=== PATIENT | male | born 1950 | race Two or more races ===

== ENCOUNTER 2020-09-23 08:36 | Inpatient (IN) | payer MEDICAID ==
[~2020-09-23] VITALS: Ht 175.3 cm; Wt 99.8 kg
[2020-09-23 08:46] VITALS: BP 154/90
--- NOTE | 2020-09-23 08:46 | NUR ---
ED Nurse Note: Patient from [facility] and brought in by RA 68 due to oxygen desaturation of 90 % in room air. Per EMS, oxygen went up to 97 % on 4LPM. Patient is awake and moaning, unable to follow commands with non labored breathing. Noted occasional coughing. Sats 94 % in room air at this time.
--- NOTE | 2020-09-23 09:19 | Diagnostic Imaging Report ---
EXAM: XR Chest, 1 View CLINICAL HISTORY: DYSPNEA TECHNIQUE: Frontal view of the chest. COMPARISON: No relevant prior studies available. FINDINGS: Lungs: There are patchy bilateral lower lobe infiltrate suspicious for pneumonia. Pleural space: Unremarkable. No pneumothorax. Heart: Unremarkable. No cardiomegaly. Mediastinum: Unremarkable. Bones/joints: Unremarkable. IMPRESSION: There are patchy bilateral lower lobe infiltrate suspicious for pneumonia.
--- NOTE | 2020-09-23 09:39 | NUR ---
ED Nurse Note: Collected blood, urine, covid19 swab. MRSA/VRE and CRE swab then sent.
[2020-09-23 09:42] LABS: BASOPHILS % (AUTO) 0.3 % (0.0-2.0); EOSINOPHILS % (AUTO) 0.5 % (0.0-3.0); HEMATOCRIT 45.1 % (42.0-52.0); HEMOGLOBIN 15.9 G/DL (14.2-18.0); LYMPHOCYTES % (AUTO) 9.5 % (20.0-45.0); MEAN CORPUSCULAR VOLUME 83 FL (80-99); MONOCYTES % (AUTO) 8.7 % (1.0-10.0); PLATELET COUNT 196 K/UL (150-450); RED BLOOD COUNT 5.41 M/UL (4.70-6.10); RED CELL DISTRIBUTION WIDTH 14.5 % (11.6-14.8); WHITE BLOOD COUNT 8.9 K/UL (4.8-10.8)
--- NOTE | 2020-09-23 09:42 | Emergency Room Report ---
History of Present Illness General Chief Complaint: Dyspnea/Respdistress Source: Medical Record, EMS Present Illness HPI Patient sent in from nursing home facility. Apparently he was desaturating his oxygen there. He had a O2 sat of 90%. On 4 L went up to 97%. There is a history that he tested negative for Covid but unknown which date. The patient is unable to give a history as he is mumbling his words. He does complain about pain in his rectum but denies chest pain. He has been coughing also. 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 Prediabetic. Hypertension. COPD. Allergies: Coded Allergies: No Known Allergies (Unverified , 09/23/20) COVID-19 Screening Contact w/high risk pt: Yes Experienced COVID-19 symptoms?: Yes COVID-19 Testing performed [employer]: No Patient History Limited by: medical condition Past Medical History: see triage record, old chart reviewed - Records from nursing home facility Social History Narrative residential facility Reviewed Nursing Documentation: PMH: Agreed; PSxH: Agreed Nursing Documentation-PMH Hx Hypertension: Yes - HYPERLIPIDEMIA History Of Psychiatric Problem: Yes - MAJOR DEPRESSIVE DISORDER, SCHIZOPHRENIA, BIPOLAR Review of Systems All Other Systems: limited Physical Exam Vital Signs Date Time Temp Pulse Resp B/P (MAP) Pulse Ox O2 Delivery O2 Flow Rate FiO2 09/23/20 08:36 98.8 88 16 140/90 (107) 97 Nasal Cannula 2.0 Sp02 EP Interpretation: reviewed, normal General Appearance: no apparent distress, alert, Chronically Ill Head: normocephalic, atraumatic Eyes: bilateral eye normal inspection, bilateral eye PERRL, bilateral eye EOMI ENT: moist mucus membranes Neck: supple, no meningismus Respiratory: no respiratory distress, no retraction, crackles Cardiovascular #1: regular rate, rhythm Cardiovascular #2: 2+ radial (R) Gastrointestinal: normal inspection, non tender, no mass, decreased bowel sounds Genitourinary: penis normal Musculoskeletal: back normal, normal range of motion, no calf tenderness, other - Contractures of hands and feet Neurologic: alert, oriented - X1, Babinski - Bilateral, other - Grunting sounds incomprehensible Psychiatric: mood/affect normal Reflexes: 2+ knee (R), 2+ knee (L) Skin: no rash, warm/dry Medical Decision Making Diagnostic Impression: Primary Impression: Pneumonia Qualified Codes: J18.9 - Pneumonia, unspecified organism Additional Impressions: Hypoxia Schizophrenia Qualified Codes: F20.9 - Schizophrenia, unspecified ER Course Patient presents with hypoxia and cough. Differential includes pneumonia, COVID-19, bronchitis, exacerbation of COPD amongst others. Patient evaluated with EKG, chest x-ray and labs. Patient placed in isolation and Covid is being tested. Patient placed on a engine monitor. Covid test negative. EKG no injury. Chest x-ray bilateral infiltrates. CBC with normal white count. Left shift. CMP essentially normal with minimally elevated blood glucose. Urinalysis clear. Normal lactic acid, negative troponin. Minimally elevated D-dimer. Antibiotics begun for pneumonia from nursing home facility. Patient somewhat improved but still with low oxygen saturation on oxygen. Patient admitted to the medical floor. Laboratory Tests Test 09/23/20 09:15 White Blood Count 8.9 K/UL (4.8-10.8) Red Blood Count 5.41 M/UL (4.70-6.10) Hemoglobin 15.9 G/DL (14.2-18.0) Hematocrit 45.1 % (42.0-52.0) Mean Corpuscular Volume 83 FL (80-99) Mean Corpuscular Hemoglobin 29.4 PG (27.0-31.0) Mean Corpuscular Hemoglobin Concent 35.2 G/DL (32.0-36.0) Red Cell Distribution Width 14.5 % (11.6-14.8) Platelet Count 196 K/UL (150-450) Mean Platelet Volume 6.2 FL (6.5-10.1) L Neutrophils (%) (Auto) 81.0 % (45.0-75.0) H Lymphocytes (%) (Auto) 9.5 % (20.0-45.0) L Monocytes (%) (Auto) 8.7 % (1.0-10.0) Eosinophils (%) (Auto) 0.5 % (0.0-3.0) Basophils (%) (Auto) 0.3 % (0.0-2.0) Prothrombin Time 11.6 SEC (9.30-11.50) H Prothrombin Time INR 1.1 (0.9-1.1) Activated Partial Thromboplast Time 28 SEC (23-33) D-Dimer 0.91 mg/L FEU (0.00-0.49) H Urine Color Yellow Urine Appearance Slightly cloudy Urine pH 5 (4.5-8.0) Urine Specific [place] 1.020 (1.005-1.035) Urine Protein 1+ (NEGATIVE) H Urine Glucose (UA) Negative (NEGATIVE) Urine Ketones Negative (NEGATIVE) Urine Blood 1+ (NEGATIVE) H Urine Nitrite Negative (NEGATIVE) Urine Bilirubin Negative (NEGATIVE) Urine Urobilinogen 4 MG/DL (0.0-1.0) H Urine Leukocyte Esterase 1+ (NEGATIVE) H Urine RBC 0-2 /HPF (0 - 0) H Urine WBC 2-4 /HPF (0 - 0) Urine Squamous Epithelial Cells Occasional /LPF Urine Bacteria Moderate /HPF (NONE) H Sodium Level 142 MMOL/L (136-145) Potassium Level 4.0 MMOL/L (3.5-5.1) Chloride Level 107 MMOL/L (98-107) Carbon Dioxide Level 27 MMOL/L (21-32) Anion Gap 8 mmol/L (5-15) Blood Urea Nitrogen 20 mg/dL (7-18) H Creatinine 1.0 MG/DL (0.55-1.30) Estimated Glomerular Filtration Rate > 60 mL/min (>60) Glucose Level 118 MG/DL (74-106) H Lactic Acid Level 1.40 mmol/L (0.4-2.0) Calcium Level 9.1 MG/DL (8.5-10.1) Magnesium Level 2.2 MG/DL (1.8-2.4) Ferritin 169 NG/ML (8-388) Total Bilirubin 0.6 MG/DL (0.2-1.0) Aspartate Amino Transferase (AST) 16 U/L (15-37) Alanine Aminotransferase (ALT) 12 U/L (12-78) Alkaline Phosphatase 90 U/L (46-116) Lactate Dehydrogenase 193 U/L (81-234) Total Creatine Kinase 83 U/L (26-308) Troponin I 0.020 ng/mL (0.000-0.056) C-Reactive Protein, Quantitative 3.8 mg/dL (0.00-0.90) H Pro-B-Type Natriuretic Peptide 178 pg/mL (0-125) H Total Protein 7.3 G/DL (6.4-8.2) Albumin 3.4 G/DL (3.4-5.0) Globulin 3.9 g/dL Albumin/Globulin Ratio 0.9 (1.0-2.7) L Lipase 113 U/L (73-393) Microbiology Date/Time Source Procedure Growth Status 09/23/20 09:10 Nasopharynx SARS-CoV-2 RdRp Gene Assay - Final Complete EKG Diagnostic Results Rate: normal Rhythm: NSR ST Segments: no acute changes - Specific ST-T wave changes Rhythm Strip Diag. Results EP Interpretation: yes Rhythm: NSR, no PVC's, no ectopy Chest X-Ray Diagnostic Results Chest X-Ray Diagnostic Results : Chest X-Ray Ordered: Yes # of Views/Limited/Complete: 1 View Indication: Other EP Interpretation: Yes Interpretation: no effusion, no pneumothorax, other - Lower lobe consolidation Impression: Other Electronically Signed by: Electronically signed by Jarad Mccauley MD Last Vital Signs Date Time Temp Pulse Resp B/P (MAP) Pulse Ox O2 Delivery O2 Flow Rate FiO2 09/23/20 20:14 Nasal Cannula 2.0 09/23/20 19:54 98.3 86 18 158/90 (112) 95 Status: improved Disposition: ADMITTED INPATIENT Condition: Serious Referrals: NON PHYSICIAN (PCP) Jarad Mccauley MD Sep 23, 2020 09:42
[2020-09-23] MEDS ORDERED: Azithromycin 500 MG in NS 275 ML IV ONE (09:45)
[2020-09-23] MEDS ORDERED: cefTRIAXone 1 GM in NS 55 ML IVPB ONE (09:45)
[2020-09-23 09:57] LABS: INR 1.1 (0.9-1.1)
[2020-09-23 10:10] LABS: ANION GAP 8 mmol/L (5-15); BLOOD UREA NITROGEN 20 mg/dL (7-18); CALCIUM 9.1 MG/DL (8.5-10.1); CARBON DIOXIDE 27 MMOL/L (21-32); CHLORIDE 107 MMOL/L (98-107); SODIUM 142 MMOL/L (136-145)
[2020-09-23] MEDS ORDERED: ATORVASTATIN CA20 MG ORAL (10:14)
[2020-09-23] MEDS ORDERED: RISPERDAL1 MG PO (10:14)
[2020-09-23] MEDS ORDERED: ASPIRIN EC81 MG ORAL (10:14)
[2020-09-23] MEDS ORDERED: HALDOL DEC100 MG/1 M IM (10:14)
[2020-09-23] MEDS ORDERED: LISINOPRIL10 MG ORAL (10:14)
[2020-09-23] MEDS ORDERED: BENZTROPINE MESY1 MG ORAL (10:14)
[2020-09-23 10:27] LABS: ALANINE AMINOTRANSFERASE 12 U/L (12-78); ALBUMIN 3.4 G/DL (3.4-5.0); ALBUMIN/GLOBULIN RATIO 0.9 (1.0-2.7); ALKALINE PHOSPHATASE 90 U/L (46-116); ASPARTATE AMINO TRANSFERASE 16 U/L (15-37); BILIRUBIN,TOTAL 0.6 MG/DL (0.2-1.0); CREATINE KINASE 83 U/L (26-308); FERRITIN 169 NG/ML (8-388); LACTATE DEHYDROGENASE 193 U/L (81-234)
[2020-09-23 10:40] VITALS: BP 159/95
[2020-09-23 10:45] LABS: APPEARANCE,URINE SLIGHTLY CLOUDY; BILIRUBIN, URINE NEGATIVE (NEGATIVE); GLUCOSE, URINE (UA) NEGATIVE (NEGATIVE); KETONES,URINE NEGATIVE (NEGATIVE); LEUKOCYTE ESTERASE ,URINE 1+ (NEGATIVE); NITRITE,URINE NEGATIVE (NEGATIVE); PH,URINE 5 (4.5-8.0); PROTEIN,URINE 1+ (NEGATIVE); UROBILINOGEN,URINE 4 MG/DL (0.0-1.0)
[2020-09-23 10:47] LABS: COLOR,URINE YELLOW
--- NOTE | 2020-09-23 12:01 | NUR ---
ED Nurse Note: Report given to Elaina BUSTILLO of Med Surg unit.
--- NOTE | 2020-09-23 12:41 | NUR ---
NURSE NOTES: Patient received from ER at 1225, report given by IWONA Kovacs. Pt is awake, alert and oriented x 1, unable to verbalize needs, not in any form of distress, no SOB, no s/sx of pain observed, bed set in lowest position with breaks engaged and alarm on, side rails up x 2 for safety, IV line present on right hand 20 g, skin assessment done, on room air, VS WNL, no belongings noted. Pt will be under care of Dr. Johnathon MD made aware of patient's arrival on the unit. Will continue to monitor and proceed with plan of care. Call light within reach. Addendum: 09/23/20 at 1641 by Elaina Wright RN Patient has no pressure ulcer present per endorsement and actual assessment, skin check performed with charge nurse, only hyperpigmentation noted on sacral area. Optifoam placed on sacral and heels for protection.
[2020-09-23 16:00] VITALS: BP 169/98
[2020-09-23] MEDS: Depakote 125mg Sprinkles ORAL SCH (17:03)
--- NOTE | 2020-09-23 19:21 | NUR ---
NURSE HAND-OFF: Important Events on Shift:[monitoring BP, new admission, turning and repositioning, monitor 02] Patient Status: [stable] Diet: [pureed moist] Pending Orders: [] Pending Results/Labs:[] Pending MD notification:[] Latest Vital Signs: Temperature 98.3 , Pulse 92 , B/P 169 /98 , Respiratory Rate 19 , O2 SAT 100 , Room Air, O2 Flow Rate 2.0 . Vital Sign Comment: [] Latest Levine Fall Score: 50 Fall Risk: High Risk Safety Measures: Call light , Bed Alarm , Side Rails Side Rails x2, Bed position Low and Locked. Fall Precautions: Report given to [IWONA Chavira].
[2020-09-23 19:54] VITALS: BP 158/90
[2020-09-23] MEDS: Benztropine 1mg tab ORAL SCH (21:00)
[2020-09-23] MEDS: Atorvastatin 20mg tab ORAL SCH (21:00)
--- NOTE | 2020-09-23 21:15 | History and Physical Report ---
DATE OF ADMISSION: 09/23/2020 HISTORY OF PRESENT ILLNESS: This is a 69 years old male, came to the emergency room for generalized weakness, hypoxia, pneumonia. The patient's COVID test is negative. PAST MEDICAL HISTORY: Significant for hypertension, hyperlipidemia, depression. MEDICATIONS: He is taking lisinopril, Risperdal, benztropine, Lipitor, aspirin. ALLERGIES: NKA. FAMILY HISTORY: Noncontributory. SOCIAL HISTORY: Lives at home. PHYSICAL EXAMINATION: GENERAL: This is an elderly male, currently in bed requiring oxygen. VITAL SIGNS: Blood pressure is 169/98, pulse 92, respirations 19, temperature 98.3. HEENT: Eyes are open. NECK: Supple. CHEST: Bilateral few crackles. CARDIOVASCULAR: Regular rhythm. No gallop. No murmur. ABDOMEN: Soft. Positive bowel sounds. Nontender. EXTREMITIES: CCE. NEUROLOGICAL: The patient has generalized weakness. GENITOURINARY: Deferred. LABORATORY AND DIAGNOSTIC DATA: White counts are 8.9, hemoglobin is 16. Chemistry panel, BUN 20, creatinine 1. C-reactive protein is 3.8. Troponins are negative. Chest x-ray showing there are patchy bilateral lower lobe pneumonia. ASSESSMENT: 1. Pneumonia. 2. Depression. 3. Hyperlipidemia. PLAN: We will continue current treatment. Continue antibiotic, bronchodilator treatments. Consider Pulmonary consult. Stanford Diego M.D. DR: HOSEA JOB#: [id number] CC:
[2020-09-24 00:03] VITALS: BP 155/100
[2020-09-24 03:57] VITALS: BP 150/98
--- NOTE | 2020-09-24 07:21 | NUR ---
HAND-OFF: Report given to Rylan Pathak RN.
--- NOTE | 2020-09-24 07:33 | NUR ---
NURSE NOTES: Received report from IWONA Burroughs. Patient seen in bed AAOx3, sometimes verbal, on bed rest. Patient on room air, breathing is even and unlabored with no SOB noted at this time. IV site patent and intact. Noted to have condom cath, draining yellow urine well. Bed is locked and placed in lowest position with bed alarm on .Call light within reach. Will continue to monitor Addendum: 09/24/20 at 1252 by Rylan Pathak RN AAOX1
[2020-09-24 08:00] VITALS: BP 158/107
[2020-09-24] MEDS: Azithromycin 500 MG in D5W 275 ML IV SCH (08:39)
[2020-09-24] MEDS: Aspirin Baby 81mg ORAL SCH (08:39)
[2020-09-24] MEDS: Depakote 125mg Sprinkles ORAL SCH ×2 (08:39→17:09)
[2020-09-24] MEDS: Lisinopril 10mg tab ORAL SCH (08:40)
[2020-09-24] MEDS: Enoxaparin 40mg Inj SUBQ SCH (08:41)
[2020-09-24] MEDS ORDERED: dexAMETHasone 10mg/ml Inj IV SCH (09:00)
[2020-09-24] MEDS: cefTRIAXone 1 GM in D5W 55 ML IVPB SCH (10:21)
[2020-09-24 12:00] VITALS: BP 146/90
--- NOTE | 2020-09-24 12:09 | General Progress Note ---
Subjective Constitutional: Reports: weakness Respiratory: Reports: cough, shortness of breath Gastrointestinal/Abdominal: Reports: no symptoms Neurologic/Psychiatric: Reports: weakness Allergies: Coded Allergies: No Known Allergies (Unverified , 09/23/20) Objective Last 24 Hour Vital Signs Date Time Temp Pulse Resp B/P (MAP) Pulse Ox O2 Delivery O2 Flow Rate FiO2 09/24/20 09:00 Nasal Cannula 2.0 09/24/20 08:40 158/107 09/24/20 08:00 97.7 73 20 158/107 (124) 96 09/24/20 03:57 98.1 79 18 150/98 (115) 96 09/24/20 00:03 98.4 77 20 155/100 (118) 96 09/23/20 20:14 Nasal Cannula 2.0 09/23/20 19:54 98.3 86 18 158/90 (112) 95 09/23/20 16:12 169/98 09/23/20 16:00 98.3 92 19 169/98 (121) 100 09/23/20 12:47 Nasal Cannula 2.0 09/23/20 12:14 98.0 98 15 162/90 100 Room Air Intake and Output 09/23/20 09/24/20 19:00 07:00 Intake Total 1330 ml Output Total 200 ml 250 ml Balance 1130 ml -250 ml Intake IV Total 1330 ml Output Urine Total 200 ml 250 ml # Voids 1 1 Height (Feet): 5 Height (Inches): 9.00 Weight (Pounds): 220 General Appearance: moderate distress EENT: PERRL/EOMI Neck: supple Cardiovascular: tachycardia Respiratory/Chest: crackles/rales, rhonchi - bilaterally Abdomen: non tender, soft Extremities: non-tender Assessment/Plan Assessment/Plan: covid pna iv abx iv decadrone fio2 id and pulmo on the case Vinnie Diego MD Sep 24, 2020 12:09
--- NOTE | 2020-09-24 15:40 | NUR ---
NURSE NOTES: Patient unable to expectorate sputum. Will continue to try
[2020-09-24 16:00] VITALS: BP 156/102
--- NOTE | 2020-09-24 16:18 | NUR ---
CASE MANAGEMENT:INITIAL REVIEW 69 YR OLD MALE BIBA FROM [facility] CC;DYSPNEA. RESPIRATORY DISTRESS SI;HYPOXIA. PNEUMONIA. 98.8 105 18 181/118 97% 2L NC BUN 20 CRP 3.8 PT 11.6 D-DIMER 0.91 UA+ PROTEIN, BLOOD, UROBILINOGEN, LEUKOCYTE ESTERASE, RBC, BACTERIA COVID RAPID ~ NEGATIVE CXR ~ There are patchy bilateral lower lobe infiltrate suspicious for pneumonia. IS;IVF NS BOLUS ROCEPHIN IV ZITHROMAX IV HYDRALAZINE IV ADMITTED TO MED SURG MED SURG STATUS DCP;FROM [facility]
--- NOTE | 2020-09-24 17:00 | Consultation ---
DATE OF CONSULTATION: 09/24/2020 INFECTIOUS DISEASES CONSULTATION CONSULTING PHYSICIAN: Venkata Coppola MD REFERRING PHYSICIAN: Vinnie Diego MD REASON FOR CONSULTATION: Pneumonia. HISTORY OF PRESENTING ILLNESS: This is a 69-year-old gentleman with history of hypertension, hyperlipidemia, depression who comes in with weakness. He was found to have pneumonia. His COVID-19 test is negative. An Infectious Diseases consultation has been obtained for antibiotics. PAST MEDICAL HISTORY: 1. History of hypertension. 2. Hyperlipidemia. 3. Depression. SOCIAL HISTORY: Unknown. FAMILY HISTORY: Unknown. REVIEW OF SYSTEMS: Unable to obtain currently. MEDICATIONS: As an inpatient, he is on ceftriaxone, lisinopril, aspirin, dexamethasone, azithromycin, Lovenox, Cogentin, Lipitor, clonidine, Depakote, albuterol ipratropium, Tylenol. ALLERGIES: No known drug allergies. PHYSICAL EXAMINATION: VITAL SIGNS: Temperature of 97.7, T-max of 98.8, pulse of 73, respiratory rate 20, blood pressure 158/107, O2 saturation of 96% on 2 liters of oxygen. HEENT: Pupils equally reactive to light and accommodation. Mouth appears clean without thrush. NECK: Supple. No adenopathy. No JVD. CARDIOVASCULAR: Regular rate and rhythm. No murmurs. LUNGS: Clear to auscultation bilaterally. No crackles. No wheezes. ABDOMEN: Soft, nontender. No organomegaly. EXTREMITIES: No cyanosis, no clubbing, no edema. LABORATORY DATA: Sodium 142, potassium 4, chloride 107, bicarb 27, BUN 20, creatinine 1, glucose 118. Calcium 9.1. Ferritin 169. Total bilirubin 0.6, AST 16, ALT 12, alkaline phosphatase 90. LDH 193. CK of 83. Troponin 0.02. C-reactive protein 3.8. Beta-natriuretic peptide 178. Total protein 7.3. Albumin 3.4. Lipase of 113. UA showing 2 to 4 white cells. COVID-19 test is negative. Chest x-ray is showing patchy bilateral lower lobe infiltrate, suspicious for pneumonia. ASSESSMENT: This is a 69-year-old gentleman with history of hypertension, depression, hyperlipidemia who comes in with weakness and is found to have. 1. Pneumonia. His COVID-19 test is negative. 2. Hypertension. 3. Hyperlipidemia. 4. Depression. PLAN: 1. Continue ceftriaxone and azithromycin. 2. Discontinue dexamethasone. 3. We will order a sputum for Gram stain and culture. 4. We will follow up cultures. I would like to thank Dr. Diego for this consultation. Maikeluntsyl Coppola M.D. DR: DANIEL JOB#: [id number] CC: Stanford Diego M.D.; Fax#: [phone]
[2020-09-24] MEDS ORDERED: Varibar Honey 250ml MC PRN (18:00)
[2020-09-24] MEDS ORDERED: Varibar Nectar 240ml MC PRN (18:00)
[2020-09-24] MEDS ORDERED: Varibar Pudding 230ml MC PRN (18:00)
[2020-09-24] MEDS ORDERED: Varibar Thin Liquid powder 148gm MC PRN (18:00)
--- NOTE | 2020-09-24 19:07 | NUR ---
NURSE HAND-OFF: Important Events on Shift: Sputum collection Patient Status: stable Diet: no added salt Pending Orders: n/a Pending Results/Labs: sputum culture Pending MD notification:n/a Latest Vital Signs: Temperature 97.4 , Pulse 88 , B/P 156 /102 , Respiratory Rate 20 , O2 SAT 98 , Nasal Cannula, O2 Flow Rate 2.0 . Vital Sign Comment: stable Latest Levine Fall Score: 50 Fall Risk: High Risk Safety Measures: Call light Within Reach, Bed Alarm Zone 2, Side Rails Side Rails x2, Bed position Low and Locked. Fall Precautions: Yellow Socks Report given to IWONA Burroughs.
[2020-09-24] MEDS: Albuterol/Ipratropium 3ml neb HHN PRN (19:57)
--- NOTE | 2020-09-24 20:04 | NUR ---
NURSE NOTES: Received patient awake, non-verbal, on O2 at 2L/min, having unproductive cough, RT giving him breathing treatment.
[2020-09-24 20:37] VITALS: BP 146/88
[2020-09-24] MEDS: Atorvastatin 20mg tab ORAL SCH (20:41)
[2020-09-24] MEDS: Benztropine 1mg tab ORAL SCH (20:41)
--- NOTE | 2020-09-24 23:06 | Psychiatry Consultation ---
Psychiatry Consultation Psychiatry Consultation Chief Complaint: Dyspnea/Respdistress History of Present Illness: 69-year-old male with a history of depression, who is admitted to the hospital for COVID-19. The patient presents with anxiety, hopelessness, helplessness, and decreased energy. PAST PSYCHIATRIC HISTORY: Depression and anxiety. PAST MEDICAL HISTORY: Significant for COVID-19, hypertension, hyperlipidemia. ALLERGIES: No known drug allergies. SUBSTANCE ABUSE HISTORY: No known history of illicit drug use or alcohol. MENTAL STATUS EXAMINATION: The patient is alert, oriented times self, place, situation. Mood is depressed. Affect is blunted, congruent with mood. Thought process is concrete. Thought content, no suicidal or homicidal ideation. Cognition is intact. Insight and judgment is fair. ASSESSMENT: Middle Bass I Major depressive disorder. Middle Bass II Deferred. Middle Bass III As above. Middle Bass IV Low. Middle Bass V 50 PLAN: 1. We will start the patient on Lexapro. 2. Provide the patient with reality orientation and supportive therapy. Allergies: Coded Allergies: No Known Allergies (Unverified , 09/23/20) Medication History Scheduled Aspirin Ec* (Aspirin Ec*), 81 MG ORAL DAILY, (Reported) Atorvastatin Calcium* (Atorvastatin Calcium*), 20 MG ORAL BEDTIME, (Reported) Benztropine Mesylate* (Benztropine Mesylate*), 1 MG ORAL DAILY AT BEDTIME, (Reported) Haloperidol Decanoate (Haloperidol Decanoate), 1 ML IM OF THE MONTH, (Reported) Lisinopril* (Lisinopril*), 10 MG ORAL DAILY, (Reported) Risperidone* (Risperdal*), 1 MG PO DAILY, (Reported) Discontinued Medications Haloperidol Decanoate (Haldol Decanoate 100), 100 MG IM, (Reported) Discontinued Reason: Therapy completed Objective Data Height (Feet): 5 Height (Inches): 9.00 Weight (Pounds): 220 Blaze Kendrick MD Sep 24, 2020 23:06
[2020-09-25 00:24] VITALS: BP 129/79
[2020-09-25 04:00] VITALS: BP 120/74
--- NOTE | 2020-09-25 07:00 | NUR ---
HAND-OFF: Report given to Rylan Pathak RN.
--- NOTE | 2020-09-25 07:03 | NUR ---
NURSE NOTES: Received report from IWONA Burroughs. Patient seen in bed AAOx1, sometimes verbal, on bed rest. Patient on room air, breathing is even and unlabored with no SOB noted at this time. IV site patent and intact. Noted to have condom cath, draining urine well. Bed is locked and placed in lowest position with bed alarm on .Call light within reach. Will continue to monitor
[2020-09-25 08:00] VITALS: BP 137/80
--- NOTE | 2020-09-25 08:12 | NUR ---
Speech Pathology Note (Bedside Dysphagia Evaluation) Brief Note: Mr. Roe is a 69 year old male BIBA via 911 from [facility] due to hypoxemia with possible aspiration on 09/23/2020. His PO diet at care home is pureed and nectar thick liquid. On his arrival vital signs were temp (98.8), pulse (88 S.T), BP 140/90, RR 16, SPO2 97% on 2 liter. The labs were grossly unremarkable. CXR was concerning for bilateral lower lobe infiltrate c.w possible aspiration pneumonia. ID consult, and antibiotic regimen was selected. The sputum culture is currently pending. Last 24 hours vital signs are stable with peak temperature 97.1, and lowest O2 saturation is 93% on 2 liter. His underlying medical issues are hypertension, hyperlipidemia, cataract, paranoid schizophrenia, and atherosclerotic. Findings: Mr. Roe is alert and oriented x 1. His speech is severely dysarthric in flaccid in nature. His initial voice is very wet concerning secretion in larynx to begin with. During spontaneous speech, he intermittently coughed with congestion concerning for secretion in lungs as well. His cough is effective to mobilize his own secretion. He received breakfast tray consists with pureed pancake, egg, cream of wheat and thick juice. When I asked him if he is interested in eating he said yes. I carefully fed him. However, he intermittently aspirates PO diet, more so thick liquid rather pureed. I was not sure exactly how and what he aspirated. One of the cause of dysphagia is definitely due to oropharyngeal dysmotility based on his slurred speech. I am not sure if there are any other issues causing dysphagia with aspiration at this time, due to limited information at this time. I am not sure if this dysphagia is therapeutically reversible. Interpretation: 1. Oropharyngeal dysphagia with aspiration 2. Monitor vital signs Plan: 1. NPO except medication for now -(crush with apple sauce) 2. Videofluoroscopic Swallow Study for further assessment -SKIVER HAND follow up Brennan Jha
[2020-09-25] MEDS: Lisinopril 10mg tab ORAL SCH (09:03)
[2020-09-25] MEDS: Depakote 125mg Sprinkles ORAL SCH ×2 (09:03→17:06)
[2020-09-25] MEDS: Enoxaparin 40mg Inj SUBQ SCH (09:03)
[2020-09-25] MEDS: Aspirin Baby 81mg ORAL SCH (09:03)
[2020-09-25] MEDS: Azithromycin 500 MG in D5W 275 ML IV SCH (09:04)
[2020-09-25] MEDS: cefTRIAXone 1 GM in D5W 55 ML IVPB SCH (10:15)
[2020-09-25] MEDS: Albuterol/Ipratropium 3ml neb HHN PRN (10:57)
--- NOTE | 2020-09-25 11:22 | Infectious Diseases Prog Note ---
Assessment/Plan Assessment/Plan antibiotics : ceftriaxone, azithromycin A 1. Pneumonia. COVID-19 test is negative. 2. Hypertension. 3. Hyperlipidemia. 4. Depression. P 1. Continue ceftriaxone and azithromycin. 2. We will follow up cultures. Subjective ROS Limited/Unobtainable: Yes Allergies: Coded Allergies: No Known Allergies (Unverified , 09/23/20) Objective Last 24 Hour Vital Signs Date Time Temp Pulse Resp B/P (MAP) Pulse Ox O2 Delivery O2 Flow Rate FiO2 09/25/20 10:58 88 18 97 Nasal Cannula 2.0 28 87 20 94 09/25/20 09:03 137/80 09/25/20 09:00 Nasal Cannula 2.0 09/25/20 08:00 97.5 84 18 137/80 (99) 97 09/25/20 07:49 85 18 97 Nasal Cannula 2.0 28 09/25/20 07:49 97 Nasal Cannula 2.0 28 09/25/20 04:00 96.6 71 18 120/74 (89) 97 09/25/20 00:24 97.8 95 19 129/79 (96) 98 09/24/20 20:37 97.1 85 18 146/88 (107) 93 09/24/20 20:20 Nasal Cannula 2.0 09/24/20 20:07 88 20 98 Nasal Cannula 2.0 28 09/24/20 19:57 87 20 94 Nasal Cannula 2.0 28 09/24/20 19:57 94 Nasal Cannula 2.0 28 09/24/20 19:57 87 20 94 Nasal Cannula 2.0 28 09/24/20 16:00 97.4 88 20 156/102 (120) 98 09/24/20 12:00 98.0 68 20 146/90 (108) 98 Height (Feet): 5 Height (Inches): 9.00 Weight (Pounds): 220 Respiratory/Chest: lungs clear Cardiovascular: normal rate, regular rhythm, no gallop/murmur Abdomen: soft, non tender Extremities: no edema Microbiology Date/Time Source Procedure Growth Status 09/24/20 16:15 Sputum Gram Stain Pending Resulted 09/24/20 16:15 Sputum Sputum Culture - Preliminary NORMAL UPPER RESPIRATORY HORACE AT 24 ... Resulted 09/23/20 09:28 Rectum - Final NO CARBAPENEM-RESISTANT ENTEROBACTERI... Complete 09/23/20 09:20 Rectum VRE Culture - Final NO VANCOMYCIN RESISTANT ENTEROCOCCUS ... Complete 09/23/20 09:15 Blood Blood Culture - Preliminary NO GROWTH AFTER 24 HOURS Resulted 09/23/20 09:10 Nasopharynx SARS-CoV-2 RdRp Gene Assay - Final Complete 09/23/20 09:00 Blood Blood Culture - Preliminary NO GROWTH AFTER 24 HOURS Resulted Current Medications Medications (Trade) Dose Ordered Sig/Dominic Route PRN Reason Start Time Stop Time Status Last Admin Dose Admin Acetaminophen (Tylenol) 650 mg Q4H PRN ORAL Mild Pain (Pain Scale 1-3) 09/23/20 14:00 10/23/20 13:59 Albuterol/ Ipratropium (Albuterol/ Ipratropium) 3 ml Q6HRT PRN HHN Shortness of Breath 09/23/20 14:00 09/28/20 13:59 09/25/20 10:57 Aspirin (ASA) 81 mg DAILY ORAL 09/24/20 09:00 11/08/20 08:59 09/25/20 09:03 Atorvastatin Calcium (Lipitor) 20 mg BEDTIME ORAL 09/23/20 21:00 12/22/20 20:59 09/24/20 20:41 Azithromycin 500 mg/Dextrose 275 ml @ 275 mls/hr Q24HRS IV 09/24/20 09:00 09/30/20 09:59 09/25/20 09:04 Barium Sulfate (Varibar Honey) 250 ml NOW PRN MC RAD 09/24/20 18:00 09/27/20 17:53 Barium Sulfate (Varibar [place]) 240 ml NOW PRN MC RAD 09/24/20 18:00 09/27/20 17:53 Barium Sulfate (Varibar Pudding) 230 ml NOW PRN MC RAD 09/24/20 18:00 09/27/20 17:53 Barium Sulfate (Varibar Thin Liquid powder) 148 gm NOW PRN MC RAD 09/24/20 18:00 09/27/20 17:53 Benztropine Mesylate (Cogentin) 1 mg BEDTIME ORAL 09/23/20 21:00 10/23/20 20:59 09/24/20 20:41 Ceftriaxone Sodium 1 gm/ Dextrose 55 ml @ 110 mls/hr Q24H IVPB 09/24/20 10:00 10/01/20 09:59 09/25/20 10:15 Clonidine HCl (Catapres Tab) 0.1 mg Q4H PRN ORAL For High Blood Pressure 09/23/20 20:00 12/22/20 19:59 Divalproex Sodium (Depakote Sprinkles) 125 mg BID ORAL 09/23/20 18:00 10/23/20 17:59 09/25/20 09:03 Enoxaparin Sodium (Lovenox) 40 mg DAILY SUBQ 09/24/20 09:00 12/23/20 08:59 09/25/20 09:03 Lisinopril (ZestriL) 10 mg DAILY ORAL 09/24/20 09:00 10/24/20 08:59 09/25/20 09:03 Risperidone (RisperDAL) 1 mg BEDTIME ORAL 09/24/20 21:00 11/08/20 20:59 09/24/20 20:41 Venkata Coppola MD Sep 25, 2020 11:22
[2020-09-25 12:00] VITALS: BP 133/81
--- NOTE | 2020-09-25 13:18 | NUR ---
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 97.5 HR 84 RR 18 B/P 137/60 2L NC O2 SAT @ 98% IS: ROCEPHIN IV AZITHROMYCIN IV LOVENOX SUBC ALB HHN MED/SURG STATUS
--- NOTE | 2020-09-25 15:58 | General Progress Note ---
Subjective Allergies: Coded Allergies: No Known Allergies (Unverified , 09/23/20) Subjective c/o cough weakness Objective Last 24 Hour Vital Signs Date Time Temp Pulse Resp B/P (MAP) Pulse Ox O2 Delivery O2 Flow Rate FiO2 09/25/20 12:00 98.4 88 18 133/81 (98) 96 09/25/20 10:58 88 18 97 Nasal Cannula 2.0 28 87 20 94 09/25/20 09:03 137/80 09/25/20 09:00 Nasal Cannula 2.0 09/25/20 08:00 97.5 84 18 137/80 (99) 97 09/25/20 07:49 85 18 97 Nasal Cannula 2.0 28 09/25/20 07:49 97 Nasal Cannula 2.0 28 09/25/20 04:00 96.6 71 18 120/74 (89) 97 09/25/20 00:24 97.8 95 19 129/79 (96) 98 09/24/20 20:37 97.1 85 18 146/88 (107) 93 09/24/20 20:20 Nasal Cannula 2.0 09/24/20 20:07 88 20 98 Nasal Cannula 2.0 28 09/24/20 19:57 87 20 94 Nasal Cannula 2.0 28 09/24/20 19:57 94 Nasal Cannula 2.0 28 09/24/20 19:57 87 20 94 Nasal Cannula 2.0 28 09/24/20 16:00 97.4 88 20 156/102 (120) 98 Intake and Output 09/24/20 09/25/20 19:00 07:00 Output Total 700 ml 200 ml Balance -700 ml -200 ml Output Urine Total 700 ml 200 ml Height (Feet): 5 Height (Inches): 9.00 Weight (Pounds): 220 General Appearance: alert EENT: PERRL/EOMI Neck: supple Cardiovascular: regular rhythm Respiratory/Chest: crackles/rales Abdomen: non tender, soft Extremities: non-tender Assessment/Plan Assessment/Plan: pna dysphasia dementia generalized weakness st eval and tx dysphasia diet iv abx iv decadrone fio2 id and pulmo on the case Vinine Diego MD Sep 25, 2020 15:58
[2020-09-25 16:00] VITALS: BP 150/72
--- NOTE | 2020-09-25 19:01 | NUR ---
NURSE HAND-OFF: Important Events on Shift:ST eval, NPO except med crush with apple sauce Patient Status: stable Diet: npo Pending Orders: n/a Pending Results/Labs:n/a Pending MD notification:n/a Latest Vital Signs: Temperature 97.6 , Pulse 87 , B/P 150 /72 , Respiratory Rate 19 , O2 SAT 96 , Nasal Cannula, O2 Flow Rate 2.0 . Vital Sign Comment: stable Latest Levine Fall Score: 50 Fall Risk: High Risk Safety Measures: Call light Within Reach, Bed Alarm Zone 2, Side Rails Side Rails x2, Bed position Low and Locked. Fall Precautions: Yellow Socks Report given to IWONA Burroughs.
--- NOTE | 2020-09-25 19:48 | NUR ---
NURSE NOTES: Received patient awake, resting in bed, having productive cough, secretions suctioned as needed.
[2020-09-25 20:26] VITALS: BP 154/100
[2020-09-25] MEDS: Benztropine 1mg tab ORAL SCH (20:45)
[2020-09-25] MEDS: Atorvastatin 20mg tab ORAL SCH (20:45)
--- NOTE | 2020-09-25 23:09 | Psychiatric Progress Note ---
Psychiatry Progress Note Psychiatry Progress Note Medications Current Medications Medications (Trade) Dose Ordered Sig/Dominic Route PRN Reason Start Time Stop Time Status Last Admin Dose Admin Acetaminophen (Tylenol) 650 mg Q4H PRN ORAL Mild Pain (Pain Scale 1-3) 09/23/20 14:00 10/23/20 13:59 Albuterol/ Ipratropium (Albuterol/ Ipratropium) 3 ml Q6HRT PRN HHN Shortness of Breath 09/23/20 14:00 09/28/20 13:59 09/25/20 10:57 Aspirin (ASA) 81 mg DAILY ORAL 09/24/20 09:00 11/08/20 08:59 09/25/20 09:03 Atorvastatin Calcium (Lipitor) 20 mg BEDTIME ORAL 09/23/20 21:00 12/22/20 20:59 09/25/20 20:45 Azithromycin 500 mg/Dextrose 275 ml @ 275 mls/hr Q24HRS IV 09/24/20 09:00 09/30/20 09:59 09/25/20 09:04 Barium Sulfate (Varibar [place]) 250 ml NOW PRN MC RAD 09/24/20 18:00 09/27/20 17:53 Barium Sulfate (Varibar [place]) 240 ml NOW PRN MC RAD 09/24/20 18:00 09/27/20 17:53 Barium Sulfate (Varibar Pudding) 230 ml NOW PRN MC RAD 09/24/20 18:00 09/27/20 17:53 Barium Sulfate (Varibar Thin Liquid powder) 148 gm NOW PRN MC RAD 09/24/20 18:00 09/27/20 17:53 Benztropine Mesylate (Cogentin) 1 mg BEDTIME ORAL 09/23/20 21:00 10/23/20 20:59 09/25/20 20:45 Ceftriaxone Sodium 1 gm/ Dextrose 55 ml @ 110 mls/hr Q24H IVPB 09/24/20 10:00 10/01/20 09:59 09/25/20 10:15 Clonidine HCl (Catapres Tab) 0.1 mg Q4H PRN ORAL For High Blood Pressure 09/23/20 20:00 12/22/20 19:59 Divalproex Sodium (Depakote Sprinkles) 125 mg BID ORAL 12/6/20 18:00 10/23/20 17:59 09/25/20 17:06 Enoxaparin Sodium (Lovenox) 40 mg DAILY SUBQ 09/24/20 09:00 12/23/20 08:59 09/25/20 09:03 Lisinopril (ZestriL) 10 mg DAILY ORAL 09/24/20 09:00 10/24/20 08:59 09/25/20 09:03 Risperidone (RisperDAL) 1 mg BEDTIME ORAL 09/24/20 21:00 11/08/20 20:59 09/25/20 20:45 Neurological/Psychiatric: Reports: anxiety, depressed, emotional problems, weakness Allergies: Coded Allergies: No Known Allergies (Unverified , 09/23/20) Objective Data Height (Feet): 5 Height (Inches): 9.00 Weight (Pounds): 220 General Appearance: alert Additional Comments: The patient is alert, oriented times self, place, situation. Mood is depressed. Affect is blunted, congruent with mood. Thought process is concrete. Thought content, no suicidal or homicidal ideation. Cognition is intact. Insight and judgment is fair. ASSESSMENT: [place] I Major depressive disorder. [place] II Deferred. [place] III As above. [place] IV Low. [place] V 50 PLAN: 1. We will start the patient on Lexapro. 2. Provide the patient with reality orientation and supportive therapy. Blaze Kendrick MD Sep 25, 2020 23:09
[2020-09-26 00:34] VITALS: BP 158/75
[2020-09-26 04:00] VITALS: BP 158/90
--- NOTE | 2020-09-26 06:53 | NUR ---
HAND-OFF: Report given to Jaret Ross RN.
--- NOTE | 2020-09-26 07:05 | NUR ---
NURSE NOTES: Handoff received from Cait BUSTILLO. Patient is awake, non-verbal, no signs of acute distress noted. IV on right hand is is intact and saline locked. Breathing is even and unlabored on room air. Bed is low and locked, side rails up x2, call light is within reach.
[2020-09-26 08:00] VITALS: BP 122/101
[2020-09-26] MEDS: Azithromycin 500 MG in D5W 275 ML IV SCH (09:04)
[2020-09-26] MEDS: Depakote 125mg Sprinkles ORAL SCH ×2 (09:05→18:29)
[2020-09-26] MEDS: Aspirin Baby 81mg ORAL SCH (09:05)
[2020-09-26] MEDS: Lisinopril 10mg tab ORAL SCH (09:05)
[2020-09-26] MEDS: Enoxaparin 40mg Inj SUBQ SCH (09:07)
--- NOTE | 2020-09-26 09:28 | NUR ---
Speech Pathology note (Dysphagia rx) Vital Signs: 09/25/2020 19:30~ 09/26/2020 04:00 Temperature: MAX: 98.6, MIN: 97.8 Pulse: MAX: 97, MIN: 82 BP: MAX: 158/90, MIN: 154/75 SPO2: MIN: 94% MAX: 97% ORA S: Pt is awake, stating "AQUA" . Intermittently congestive cough on his own secretion is noted. Pt wished to eat and drink. O: 1. PO trial given: Apple sauce and pudding (1cup each): Pt tolerated without coughing. Thick liquid ([place]): Pt coughed intermittently. Thick liquid (Honey like): Pt coughed intermittently. A/P 1. Oropharyngeal dysphagia with aspiration signs with liquid -Videofluoroscopic swallow study today for further recommendation -Meds crush with apple/pudding Brennan Jha
[2020-09-26] MEDS: cefTRIAXone 1 GM in D5W 55 ML IVPB SCH (10:16)
--- NOTE | 2020-09-26 11:23 | General Progress Note ---
Subjective Allergies: Coded Allergies: No Known Allergies (Unverified , 09/23/20) Subjective c/o cough weakness on high o2 Objective Last 24 Hour Vital Signs Date Time Temp Pulse Resp B/P (MAP) Pulse Ox O2 Delivery O2 Flow Rate FiO2 09/26/20 09:05 122/101 09/26/20 09:00 Nasal Cannula 2.0 09/26/20 08:00 97.2 91 20 122/101 (108) 95 09/26/20 04:00 97.8 83 20 158/90 (112) 97 09/26/20 00:34 97.3 83 20 158/75 (102) 95 09/25/20 20:26 96.8 97 18 154/100 (118) 94 09/25/20 20:02 Nasal Cannula 2.0 09/25/20 19:36 82 18 96 Nasal Cannula 2.0 28 09/25/20 19:32 96 Nasal Cannula 2.0 28 09/25/20 16:00 97.6 87 19 150/72 (98) 96 09/25/20 12:00 98.4 88 18 133/81 (98) 96 Intake and Output 09/25/20 09/26/20 19:00 07:00 Intake Total 785 ml Output Total 400 ml 300 ml Balance 385 ml -300 ml Intake IV Total 385 ml Other 400 ml Output Urine Total 400 ml 300 ml Height (Feet): 5 Height (Inches): 9.00 Weight (Pounds): 220 General Appearance: alert EENT: PERRL/EOMI Neck: supple Cardiovascular: regular rhythm Respiratory/Chest: expiratory wheezing Abdomen: non tender, soft Edema: trace edema Neurologic: drum tender II-XII grossly normal Assessment/Plan Assessment/Plan: pna dysphasia dementia generalized weakness st eval and tx dysphasia diet iv abx iv decadrone fio2 id and pulmo on the case dw charge nurse Vinnie Diego MD Sep 26, 2020 11:23
--- NOTE | 2020-09-26 11:43 | Infectious Diseases Prog Note ---
Assessment/Plan Assessment/Plan antibiotics : ceftriaxone, azithromycin A 1. Pneumonia. COVID-19 test is negative. 2. Hypertension. 3. Hyperlipidemia. 4. Depression. P 1. Continue ceftriaxone 3 more days 2. d/c azithromycin. 2. We will follow up cultures. Subjective ROS Limited/Unobtainable: Yes Allergies: Coded Allergies: No Known Allergies (Unverified , 09/23/20) Objective Last 24 Hour Vital Signs Date Time Temp Pulse Resp B/P (MAP) Pulse Ox O2 Delivery O2 Flow Rate FiO2 09/26/20 09:05 122/101 09/26/20 09:00 Nasal Cannula 2.0 09/26/20 08:00 97.2 91 20 122/101 (108) 95 09/26/20 04:00 97.8 83 20 158/90 (112) 97 09/26/20 00:34 97.3 83 20 158/75 (102) 95 09/25/20 20:26 96.8 97 18 154/100 (118) 94 09/25/20 20:02 Nasal Cannula 2.0 09/25/20 19:36 82 18 96 Nasal Cannula 2.0 28 09/25/20 19:32 96 Nasal Cannula 2.0 28 09/25/20 16:00 97.6 87 19 150/72 (98) 96 09/25/20 12:00 98.4 88 18 133/81 (98) 96 Height (Feet): 5 Height (Inches): 9.00 Weight (Pounds): 220 Respiratory/Chest: lungs clear Cardiovascular: normal rate, regular rhythm, no gallop/murmur Abdomen: soft, non tender Extremities: no edema Microbiology Date/Time Source Procedure Growth Status 09/24/20 16:15 Sputum Gram Stain - Final Complete 09/24/20 16:15 Sputum Sputum Culture - Final NORMAL UPPER RESPIRATORY HORACE PRESENT Complete Current Medications Medications (Trade) Dose Ordered Sig/Dominic Route PRN Reason Start Time Stop Time Status Last Admin Dose Admin Acetaminophen (Tylenol) 650 mg Q4H PRN ORAL Mild Pain (Pain Scale 1-3) 09/23/20 14:00 10/23/20 13:59 Albuterol/ Ipratropium (Albuterol/ Ipratropium) 3 ml TIDRT HHN 09/26/20 13:00 10/01/20 12:59 Aspirin (ASA) 81 mg DAILY ORAL 09/24/20 09:00 11/08/20 08:59 09/26/20 09:05 Atorvastatin Calcium (Lipitor) 20 mg BEDTIME ORAL 09/23/20 21:00 12/22/20 20:59 09/25/20 20:45 Azithromycin 500 mg/Dextrose 275 ml @ 275 mls/hr Q24HRS IV 09/24/20 09:00 09/30/20 09:59 09/26/20 09:04 Barium Sulfate (Varibar [place]) 250 ml NOW PRN MC RAD 09/24/20 18:00 09/27/20 17:53 Barium Sulfate (Varibar [place]) 240 ml NOW PRN MC RAD 09/24/20 18:00 09/27/20 17:53 Barium Sulfate (Varibar Pudding) 230 ml NOW PRN MC RAD 09/24/20 18:00 09/27/20 17:53 Barium Sulfate (Varibar Thin Liquid powder) 148 gm NOW PRN MC RAD 09/24/20 18:00 09/27/20 17:53 Benztropine Mesylate (Cogentin) 1 mg BEDTIME ORAL 09/23/20 21:00 10/23/20 20:59 09/25/20 20:45 Ceftriaxone Sodium 1 gm/ Dextrose 55 ml @ 110 mls/hr Q24H IVPB 09/24/20 10:00 10/01/20 09:59 09/26/20 10:16 Clonidine HCl (Catapres Tab) 0.1 mg Q4H PRN ORAL For High Blood Pressure 09/23/20 20:00 12/22/20 19:59 Divalproex Sodium (Depakote Sprinkles) 125 mg BID ORAL 09/23/20 18:00 10/23/20 17:59 09/26/20 09:05 Enoxaparin Sodium (Lovenox) 40 mg DAILY SUBQ 09/24/20 09:00 12/23/20 08:59 09/26/20 09:07 Lisinopril (ZestriL) 10 mg DAILY ORAL 09/24/20 09:00 10/24/20 08:59 09/26/20 09:05 Risperidone (RisperDAL) 1 mg BEDTIME ORAL 09/24/20 21:00 11/08/20 20:59 09/25/20 20:45 Venkata Coppola MD Sep 26, 2020 11:43
[2020-09-26 12:00] VITALS: BP 153/97
--- NOTE | 2020-09-26 12:23 | NUR ---
P.T Note: P.T evaluation completed. Pt is dependent in all areas of ADL/functional mobilities and currently at baseline therefore not a candidate for skilled P.T services.[facility] P.T services. Thank you for this referral. Addendum: 09/26/20 at 1223 by ROBERT CARMONA PT Amended: Links added.
[2020-09-26] MEDS: Albuterol/Ipratropium 3ml neb HHN SCH ×2 (13:00→19:22)
--- NOTE | 2020-09-26 15:53 | NUR ---
CASE MANAGEMENT:REVIEW SI;PNEUMONIA 96.8 91 20 158/90 94% 2L NC IS;DUO NEB HHN ROCEPHIN IV Q24 ZITHROMAX IV Q24 LOVENOX SQ QD DEPAKOTE PO BID MED SURG STATUS DCP;FROM [facility] [place]
[2020-09-26 16:00] VITALS: BP 139/92
--- NOTE | 2020-09-26 19:10 | NUR ---
NURSE HAND-OFF: Important Events on Shift:[new orders for breathing tx] Patient Status: stable Diet: NPO Pending Orders: Pending Results/Labs: Pending MD notification: Latest Vital Signs: Temperature 96.7 , Pulse 94 , B/P 139 /92 , Respiratory Rate 18 , O2 SAT 96 , Nasal Cannula, O2 Flow Rate 2.0 . Vital Sign Comment: stable Latest Levine Fall Score: 50 Fall Risk: High Risk Safety Measures: Call light Within Reach, Bed Alarm Zone 2, Side Rails Side Rails x2, Bed position Low and Locked. Fall Precautions: Yellow Socks Report given to Coni DOMINGUEZ.
[2020-09-26] MEDS ORDERED: HALOPERIDO100 MG/1 M IM (19:35)
[2020-09-26 20:00] VITALS: BP 158/105
[2020-09-26] MEDS: Benztropine 1mg tab ORAL SCH (20:45)
[2020-09-26] MEDS: Atorvastatin 20mg tab ORAL SCH (20:46)
--- NOTE | 2020-09-26 23:09 | Psychiatric Progress Note ---
Psychiatry Progress Note Psychiatry Progress Note Medications Current Medications Medications (Trade) Dose Ordered Sig/Dominic Route PRN Reason Start Time Stop Time Status Last Admin Dose Admin Acetaminophen (Tylenol) 650 mg Q4H PRN ORAL Mild Pain (Pain Scale 1-3) 09/23/20 14:00 10/23/20 13:59 Albuterol/ Ipratropium (Albuterol/ Ipratropium) 3 ml TIDRT HHN 09/26/20 13:00 10/01/20 12:59 09/26/20 19:22 Aspirin (ASA) 81 mg DAILY ORAL 09/24/20 09:00 11/08/20 08:59 09/26/20 09:05 Atorvastatin Calcium (Lipitor) 20 mg BEDTIME ORAL 09/23/20 21:00 12/22/20 20:59 09/26/20 20:46 Barium Sulfate (Varibar [place]) 250 ml NOW PRN MC RAD 09/24/20 18:00 09/27/20 17:53 Barium Sulfate (Varibar [place]) 240 ml NOW PRN MC RAD 09/24/20 18:00 09/27/20 17:53 Barium Sulfate (Varibar Pudding) 230 ml NOW PRN MC RAD 09/24/20 18:00 09/27/20 17:53 Barium Sulfate (Varibar Thin Liquid powder) 148 gm NOW PRN MC RAD 09/24/20 18:00 09/27/20 17:53 Benztropine Mesylate (Cogentin) 1 mg BEDTIME ORAL 09/23/20 21:00 10/23/20 20:59 09/26/20 20:45 Ceftriaxone Sodium 1 gm/ Dextrose 55 ml @ 110 mls/hr Q24H IVPB 09/24/20 10:00 10/01/20 09:59 09/26/20 10:16 Clonidine HCl (Catapres Tab) 0.1 mg Q4H PRN ORAL For High Blood Pressure 09/23/20 20:00 12/22/20 19:59 Divalproex Sodium (Depakote Sprinkles) 125 mg BID ORAL 09/23/20 18:00 10/23/20 17:59 09/26/20 18:29 Enoxaparin Sodium (Lovenox) 40 mg DAILY SUBQ 09/24/20 09:00 12/23/20 08:59 09/26/20 09:07 Lisinopril (ZestriL) 10 mg DAILY ORAL 09/24/20 09:00 10/24/20 08:59 09/26/20 09:05 Risperidone (RisperDAL) 1 mg BEDTIME ORAL 09/24/20 21:00 11/08/20 20:59 09/26/20 20:45 Neurological/Psychiatric: Reports: anxiety, depressed, emotional problems, weakness Allergies: Coded Allergies: No Known Allergies (Unverified , 09/23/20) Objective Data Height (Feet): 5 Height (Inches): 9.00 Weight (Pounds): 220 General Appearance: alert Additional Comments: The patient is alert, oriented times self, place, situation. Mood is depressed. Affect is blunted, congruent with mood. Thought process is concrete. Thought content, no suicidal or homicidal ideation. Cognition is intact. Insight and judgment is fair. ASSESSMENT: [place] I Major depressive disorder. [place] II Deferred. [place] III As above. [place] IV Low. [place] V 50 PLAN: 1. We will start the patient on Lexapro. 2. Provide the patient with reality orientation and supportive therapy. Blaze Kendrick MD Sep 26, 2020 23:09
[2020-09-27] VITALS (8 sets, daily range): BP systolic 133–173; BP diastolic 94–118
--- NOTE | 2020-09-27 05:35 | NUR ---
NURSE NOTES: Received blood culture result which is Gram positive daniel.
--- NOTE | 2020-09-27 06:02 | NUR ---
NURSE NOTES: Call and left message to Dr. Coppola regarding blood culture result. Waiting a call back.
--- NOTE | 2020-09-27 06:24 | NUR ---
NURSE NOTES: Call and left message to Dr. Diego regarding blood culture result. Waiting a call back.
--- NOTE | 2020-09-27 07:30 | NUR ---
NURSE NOTES: Report received from Coni BUSTILLO, rounds made. Patient resting in semi-fowlers position in bed. Respiration even, unlabored on O2 2LNC. Aphasic, slurred speech. Remains NPO. RH saline lock, flushes, patent,dried blood under dressing. Condom cath in place, patent, a/cl urine. Call light in reach, bed in lowest position, will continue to monitor.
--- NOTE | 2020-09-27 07:35 | NUR ---
NURSE HAND-OFF: Important Events on Shift: Patient Status: Diet: Pending Orders: Endorse follow up order regarding Blood culture result with Dr. Coppola. Pending Results/Labs: Pending MD notification: Latest Vital Signs: Temperature 98.1 , Pulse 88 , B/P 141 /95 , Respiratory Rate 23 , O2 SAT 94 , Nasal Cannula, O2 Flow Rate 2.0 . Vital Sign Comment: Latest Levine Fall Score: 50 Fall Risk: High Risk Safety Measures: Call light Within Reach, Bed Alarm Zone 2, Side Rails Side Rails x2, Bed position Low and Locked. Fall Precautions: Yellow Socks Report given to Raven BUSTILLO.
[2020-09-27] MEDS: Albuterol/Ipratropium 3ml neb HHN SCH ×3 (07:37→19:58)
[2020-09-27] MEDS: Enoxaparin 40mg Inj SUBQ SCH (08:50)
[2020-09-27] MEDS: Lisinopril 10mg tab ORAL SCH (08:51)
[2020-09-27] MEDS: Aspirin Baby 81mg ORAL SCH (08:51)
[2020-09-27] MEDS: Depakote 125mg Sprinkles ORAL SCH ×2 (08:51→18:24)
--- NOTE | 2020-09-27 10:19 | Infectious Diseases Prog Note ---
Assessment/Plan Assessment/Plan A 1. Pneumonia. COVID19 test is negative. 2. Hypertension. 3. Hyperlipidemia. 4. Depression. P 1. Continue ceftriaxone 2 more days Subjective ROS Limited/Unobtainable: Yes Constitutional: Reports: no symptoms Respiratory: Reports: no symptoms Gastrointestinal/Abdominal: Reports: no symptoms Allergies: Coded Allergies: No Known Allergies (Unverified , 09/23/20) Objective Last 24 Hour Vital Signs Date Time Temp Pulse Resp B/P (MAP) Pulse Ox O2 Delivery O2 Flow Rate FiO2 09/27/20 08:51 157/100 09/27/20 08:00 98.3 89 17 157/100 (119) 98 09/27/20 07:39 101 20 97 Nasal Cannula 2.0 28 96 18 95 09/27/20 07:37 95 Nasal Cannula 2.0 28 09/27/20 07:37 92 18 95 Nasal Cannula 2.0 28 09/27/20 04:00 98.1 88 23 141/95 (110) 94 09/27/20 00:00 98.2 86 24 133/94 (107) 96 09/26/20 21:00 Nasal Cannula 2.0 09/26/20 20:00 97.6 96 22 158/105 (122) 94 09/26/20 19:27 98 18 98 Nasal Cannula 2.0 28 94 20 96 09/26/20 19:26 96 Nasal Cannula 2.0 28 09/26/20 19:26 94 18 96 Nasal Cannula 2.0 28 09/26/20 16:00 96.7 89 18 139/92 (108) 95 09/26/20 12:00 96.8 85 18 153/97 (115) 94 Height (Feet): 5 Height (Inches): 9.00 Weight (Pounds): 220 General Appearance: no acute distress HEENT: mucous membranes moist Respiratory/Chest: lungs clear Cardiovascular: normal rate Abdomen: soft, non tender Genitourinary: other - condom catheter Extremities: no edema Neurologic/Psychiatric: alert, responsive Microbiology Date/Time Source Procedure Growth Status 09/24/20 16:15 Sputum Gram Stain - Final Complete 09/24/20 16:15 Sputum Sputum Culture - Final NORMAL UPPER RESPIRATORY HORACE PRESENT Complete Current Medications Medications (Trade) Dose Ordered Sig/Dominic Route PRN Reason Start Time Stop Time Status Last Admin Dose Admin Acetaminophen (Tylenol) 650 mg Q4H PRN ORAL Mild Pain (Pain Scale 1-3) 09/23/20 14:00 10/23/20 13:59 Albuterol/ Ipratropium (Albuterol/ Ipratropium) 3 ml TIDRT HHN 09/26/20 13:00 10/01/20 12:59 09/27/20 07:37 Aspirin (ASA) 81 mg DAILY ORAL 09/24/20 09:00 11/08/20 08:59 09/27/20 08:51 Atorvastatin Calcium (Lipitor) 20 mg BEDTIME ORAL 09/23/20 21:00 12/22/20 20:59 09/26/20 20:46 Barium Sulfate (Varibar [place]) 250 ml NOW PRN MC RAD 09/24/20 18:00 09/27/20 17:53 Barium Sulfate (Varibar [place]) 240 ml NOW PRN MC RAD 09/24/20 18:00 09/27/20 17:53 Barium Sulfate (Varibar Pud[place]) 230 ml NOW PRN MC RAD 09/24/20 18:00 09/27/20 17:53 Barium Sulfate (Varibar Thin Liquid powder) 148 gm NOW PRN MC RAD 09/24/20 18:00 09/27/20 17:53 Benztropine Mesylate (Cogentin) 1 mg BEDTIME ORAL 09/23/20 21:00 10/23/20 20:59 09/26/20 20:45 Ceftriaxone Sodium 1 gm/ Dextrose 55 ml @ 110 mls/hr Q24H IVPB 09/24/20 10:00 10/01/20 09:59 09/26/20 10:16 Clonidine HCl (Catapres Tab) 0.1 mg Q4H PRN ORAL For High Blood Pressure 09/23/20 20:00 12/22/20 19:59 Divalproex Sodium (Depakote Sprinkles) 125 mg BID ORAL 09/23/20 18:00 10/23/20 17:59 09/27/20 08:51 Enoxaparin Sodium (Lovenox) 40 mg DAILY SUBQ 09/24/20 09:00 12/23/20 08:59 09/27/20 08:50 Lisinopril (ZestriL) 10 mg DAILY ORAL 09/24/20 09:00 10/24/20 08:59 09/27/20 08:51 Risperidone (RisperDAL) 1 mg BEDTIME ORAL 09/24/20 21:00 11/08/20 20:59 09/26/20 20:45 Chencho Carpenter MD Sep 27, 2020 10:19
[2020-09-27] MEDS: cefTRIAXone 1 GM in D5W 55 ML IVPB SCH (10:39)
--- NOTE | 2020-09-27 11:47 | General Progress Note ---
Subjective Allergies: Coded Allergies: No Known Allergies (Unverified , 09/23/20) Subjective c/o cough weakness on high o2 dysphasia Objective Last 24 Hour Vital Signs Date Time Temp Pulse Resp B/P (MAP) Pulse Ox O2 Delivery O2 Flow Rate FiO2 09/27/20 08:51 157/100 09/27/20 08:00 98.3 89 17 157/100 (119) 98 09/27/20 07:39 101 20 97 Nasal Cannula 2.0 28 96 18 95 09/27/20 07:37 95 Nasal Cannula 2.0 28 09/27/20 07:37 92 18 95 Nasal Cannula 2.0 28 09/27/20 04:00 98.1 88 23 141/95 (110) 94 09/27/20 00:00 98.2 86 24 133/94 (107) 96 09/26/20 21:00 Nasal Cannula 2.0 09/26/20 20:00 97.6 96 22 158/105 (122) 94 09/26/20 19:27 98 18 98 Nasal Cannula 2.0 28 94 20 96 09/26/20 19:26 96 Nasal Cannula 2.0 28 09/26/20 19:26 94 18 96 Nasal Cannula 2.0 28 09/26/20 16:00 96.7 89 18 139/92 (108) 95 09/26/20 12:00 96.8 85 18 153/97 (115) 94 Intake and Output 09/26/20 09/27/20 19:00 07:00 Intake Total 75 ml Output Total 320 ml Balance -245 ml Intake Oral 75 ml Output Urine Total 320 ml Height (Feet): 5 Height (Inches): 9.00 Weight (Pounds): 220 General Appearance: no apparent distress EENT: PERRL/EOMI Neck: supple Cardiovascular: regular rhythm Respiratory/Chest: crackles/rales Abdomen: non tender, soft Extremities: non-tender Assessment/Plan Assessment/Plan: pna dysphasia dementia generalized weakness st eval and tx dysphasia diet iv abx iv decadrone fio2 id and pulmo on the case dw charge nurse Vinnie Diego MD Sep 27, 2020 11:47
--- NOTE | 2020-09-27 12:48 | NUR ---
CASE MANAGEMENT:REVIEW SI;PNEUMONIA. DYSPHAGIA. 98.3 101 24 157/100 94% 2L NC IS;DUO NEB HHN TID ROCEPHIN IV Q24 ASA PO QD LOVENOX SQ QD DEPAKOTE PO BID LISINOPRIL PO QD MED SURG STATUS DCP;FROM [facility]
--- NOTE | 2020-09-27 13:43 | NUR ---
RD ASSESSMENT & RECOMMENDATIONS SEE CARE ACTIVITY FOR COMPLETE ASSESSMENT DAILY ESTIMATED NEEDS: Needs based on general/ 69.4kg 25-30 kcals/kg 2385-7466 total kcals 0.8-1.2 g protein/kg 56-83 g total protein 25-30 mL/kg 5111-4066 total fluid mLs NUTRITION DIAGNOSIS: Swallowing difficulty R/T dysphagia as evidenced by NPO at this time, HALF [employer]CTION [employer] recommends VSS. CURRENT DIET:NPO PO DIET RECOMMENDATIONS: Liberalized REGULAR/ texture per [employer]F [employer] ENTERAL NUTRITION RECOMMENDATIONS: IF NOT SAFE FOR ORAL DIET -> Jevity 1.2 @ 60ml/hr x 24 hrs to provide 1440ml, 1728kcal, 80g prot, 1162ml free water * IF NOT SAFE FOR ORAL DIET, obtain GI access (pt is full code) * W/ GI access, initiate Jevity 1.2 @ 20ml/hr x 6hrs * Advance 10ml q 4-6 hrs as tolerated to goal rate * HOB over 30 degrees/ water flush of 150ml q 6hrs ADDITIONAL RECOMMENDATIONS: * Calibrated bedscale wt * F/up w/ HALF SECTION IRONER recommendation -> TF rec as above if not safe for oral diet * D5 IVF while NPO to prevent dehydration and hypoglycemia * F/up BMP and CBC
--- NOTE | 2020-09-27 15:53 | NUR ---
NURSE NOTES: Dr. Diego notified of BP 154/118, Catapress administered as ordered, patient asymptomatic, new orders for Norvasc, will administer when pharmacy verifies.
--- NOTE | 2020-09-27 18:41 | NUR ---
NURSE NOTES: Dr. Diego notified of last BM 09/22, orders received for Colace, MOM and Lactulose, see orders. Addendum: 09/27/20 at 1848 by Raven James RN Not kaylin ODOM
[2020-09-27] MEDS ORDERED: Lactulose 20gm/30ml UDC ORAL PRN (18:45)
--- NOTE | 2020-09-27 19:43 | NUR ---
NURSE HAND-OFF: Important Events on Shift:Elevated BP(administered Catapres PRN, new order for Norvasc given), No BM since 09/22 (new orders for Colace and Lactulose PRN) Patient Status: stable Diet: NPO, meds with applesauce Pending Orders: none Pending Results/Labs:none Pending MD notification:none Latest Vital Signs: Temperature 98.2 , Pulse 77 , B/P 148 /98 , Respiratory Rate 20 , O2 SAT 97 , Nasal Cannula, O2 Flow Rate 2.0 . Vital Sign Comment: Monitor BP Latest Levine Fall Score: 50 Fall Risk: High Risk Safety Measures: Call light Within Reach, Bed Alarm Zone 2, Side Rails Side Rails x2, Bed position Low and Locked. Fall Precautions: Yellow Socks Report given to Faby BUSTILLO.
--- NOTE | 2020-09-27 19:50 | NUR ---
NURSE NOTES: Received in bed, awake, able to make needs known at times. On 2L nasal cannula. Bed locked and in lowest position. Call light in reach. Bed alarm on. Will continue plan of care.
[2020-09-27] MEDS: Benztropine 1mg tab ORAL SCH (20:41)
[2020-09-27] MEDS: Atorvastatin 20mg tab ORAL SCH (20:41)
[2020-09-27] MEDS: Docusate 250mg cap ORAL SCH (20:41)
[2020-09-27] MEDS ORDERED: Varibar Honey 250ml MC PRN (20:45)
[2020-09-27] MEDS ORDERED: Varibar Pudding 230ml MC PRN (20:45)
[2020-09-27] MEDS ORDERED: Varibar Nectar 240ml MC PRN (20:45)
[2020-09-27] MEDS ORDERED: Varibar Thin Liquid powder 148gm MC PRN (20:45)
--- NOTE | 2020-09-27 22:15 | NUR ---
NURSE NOTES: NPO status still in progress. D5W @ 75cc/hr ordered by Dr. Diego. Will carry out orders
[2020-09-28] VITALS: BP 119/72
[2020-09-28 04:00] VITALS: BP 148/95
--- NOTE | 2020-09-28 06:15 | NUR ---
NURSE HAND-OFF: Important Events on Shift: IVF started, New IV line Patient Status: stable Diet: NPO Pending Orders: Swallow eval Pending Results/Labs: final result pending Pending MD notification: N/A Latest Vital Signs: Temperature 97.5 , Pulse 78 , B/P 148 /95 , Respiratory Rate 20 , O2 SAT 98 , Nasal Cannula, O2 Flow Rate 2.0 . Vital Sign Comment: Latest Levine Fall Score: 50 Fall Risk: High Risk Safety Measures: Call light Within Reach, Bed Alarm Zone 2, Side Rails Side Rails x2, Bed position Low and Locked. Fall Precautions: Yellow Socks Addendum: 09/28/20 at 0720 by CONRAD OBRIEN RN Report given to IWONA Cisneros
--- NOTE | 2020-09-28 07:39 | NUR ---
NURSE NOTES: Pt. received from IWONA Hobbs. Pt. AAOx2, on 2L NC, breathing even and unlabored on room air, no indications of respiratory distress, no complaints of pain at this time. IV left hand 20g intact and patent, with D5W at 75 cc. Bed low and locked, side rails x3 up, bed alarm active, and call light in reach.
[2020-09-28 08:00] VITALS: BP 148/92
[2020-09-28] MEDS: Aspirin Baby 81mg ORAL SCH (08:14)
[2020-09-28] MEDS: Lisinopril 10mg tab ORAL SCH (08:14)
[2020-09-28] MEDS: Depakote 125mg Sprinkles ORAL SCH ×2 (08:15→17:47)
[2020-09-28] MEDS: Docusate 250mg cap ORAL SCH ×2 (08:15→17:47)
[2020-09-28] MEDS: Enoxaparin 40mg Inj SUBQ SCH (08:17)
[2020-09-28] MEDS: Albuterol/Ipratropium 3ml neb HHN SCH ×3 (09:48→19:00)
[2020-09-28] MEDS: cefTRIAXone 1 GM in D5W 55 ML IVPB SCH (10:39)
--- NOTE | 2020-09-28 11:26 | Infectious Diseases Prog Note ---
Assessment/Plan Assessment/Plan antibiotics : ceftriaxone A 1. Pneumonia. COVID-19 test is negative. 2. Hypertension. 3. Hyperlipidemia. 4. Depression. P 1. Continue ceftriaxone 1 more day 2. We will follow up cultures. Subjective ROS Limited/Unobtainable: Yes Allergies: Coded Allergies: No Known Allergies (Unverified , 09/23/20) Objective Last 24 Hour Vital Signs Date Time Temp Pulse Resp B/P (MAP) Pulse Ox O2 Delivery O2 Flow Rate FiO2 09/28/20 08:14 73 157/104 09/28/20 08:14 157/104 09/28/20 08:00 97.7 83 20 148/92 (110) 97 09/28/20 04:00 97.5 78 20 148/95 (112) 98 09/28/20 00:00 97.7 78 20 119/72 (88) 97 09/27/20 21:00 Nasal Cannula 2.0 09/27/20 20:00 97.5 77 20 141/95 (110) 96 09/27/20 19:58 97 Nasal Cannula 2.0 28 09/27/20 19:58 88 18 94 Nasal Cannula 2.0 28 09/27/20 19:58 92 18 99 Nasal Cannula 2.0 28 88 18 96 09/27/20 18:25 77 148/98 (115) 09/27/20 16:13 89 173/108 09/27/20 15:52 86 154/118 (130) 09/27/20 15:18 173/108 09/27/20 15:18 89 173/108 (129) 09/27/20 12:00 98.2 87 20 155/98 (117) 97 Height (Feet): 5 Height (Inches): 9.00 Weight (Pounds): 220 Respiratory/Chest: lungs clear Cardiovascular: normal rate, regular rhythm, no gallop/murmur Abdomen: soft, non tender Extremities: no edema Current Medications Medications (Trade) Dose Ordered Sig/Dominic Route PRN Reason Start Time Stop Time Status Last Admin Dose Admin Acetaminophen (Tylenol) 650 mg Q4H PRN ORAL Mild Pain (Pain Scale 1-3) 09/23/20 14:00 10/23/20 13:59 Albuterol/ Ipratropium (Albuterol/ Ipratropium) 3 ml TIDRT HHN 09/26/20 13:00 10/01/20 12:59 09/28/20 09:48 Amlodipine Besylate (Norvasc) 5 mg DAILY ORAL 09/27/20 16:30 10/27/20 16:29 09/28/20 08:14 Aspirin (ASA) 81 mg DAILY ORAL 09/24/20 09:00 11/08/20 08:59 09/28/20 08:14 Atorvastatin Calcium (Lipitor) 20 mg BEDTIME ORAL 09/23/20 21:00 12/22/20 20:59 09/27/20 20:41 Barium Sulfate (Varibar Honey) 250 ml NOW PRN MC RAD 09/27/20 20:45 09/30/20 20:40 Barium Sulfate (Varibar [place]) 240 ml NOW PRN MC RAD 09/27/20 20:45 09/30/20 20:40 Barium Sulfate (Varibar Pudding) 230 ml NOW PRN MC RAD 09/27/20 20:45 09/30/20 20:40 Barium Sulfate (Varibar Thin Liquid powder) 148 gm NOW PRN MC RAD 09/27/20 20:45 09/30/20 20:40 Benztropine Mesylate (Cogentin) 1 mg BEDTIME ORAL 09/23/20 21:00 10/23/20 20:59 09/27/20 20:41 Ceftriaxone Sodium 1 gm/ Dextrose 55 ml @ 110 mls/hr Q24H IVPB 09/24/20 10:00 10/01/20 09:59 09/28/20 10:39 Clonidine HCl (Catapres Tab) 0.1 mg Q4H PRN ORAL For High Blood Pressure 09/23/20 20:00 12/22/20 19:59 09/27/20 15:18 Dextrose 1,000 ml @ 75 mls/hr [id number] IV 09/27/20 22:15 10/27/20 22:14 09/28/20 10:39 Divalproex Sodium (Depakote Sprinkles) 125 mg BID ORAL 09/23/20 18:00 10/23/20 17:59 09/28/20 08:15 Docusate Sodium (Colace) 250 mg TWICE A DAY ORAL 09/27/20 21:00 10/27/20 20:59 09/28/20 08:15 Enoxaparin Sodium (Lovenox) 40 mg DAILY SUBQ 09/24/20 09:00 12/23/20 08:59 09/28/20 08:17 Lactulose (Cephulac) 30 gm BIDPRN PRN ORAL Constipation 09/27/20 18:45 10/27/20 18:44 Lisinopril (ZestriL) 10 mg DAILY ORAL 09/24/20 09:00 10/24/20 08:59 09/28/20 08:14 Risperidone (RisperDAL) 1 mg BEDTIME ORAL 09/24/20 21:00 11/08/20 20:59 09/27/20 20:41 Venkata Coppola MD Sep 28, 2020 11:26
[2020-09-28 12:00] VITALS: BP 145/86
--- NOTE | 2020-09-28 13:30 | NUR ---
CASE MANAGEMENT:REVIEW SI;PNEUMONIA. DYSPHAGIA. 97.7 92 20 157/104 95% 2L NC IS;IVF D5 @ 75 ML/HR ROCEPHIN IV Q24 ASA PO QD LOVENOX SQ QD DEPAKENE PO BID LISINOPRIL OP QD MED SURG STATUS DCP;FROM [facility]
[2020-09-28 16:00] VITALS: BP 138/85
--- NOTE | 2020-09-28 16:34 | General Progress Note ---
Subjective Allergies: Coded Allergies: No Known Allergies (Unverified , 09/23/20) Subjective c/o cough weakness on high o2 dysphasia dysphasia Objective Last 24 Hour Vital Signs Date Time Temp Pulse Resp B/P (MAP) Pulse Ox O2 Delivery O2 Flow Rate FiO2 09/28/20 14:41 97 20 97 Nasal Cannula 2.0 28 96 18 94 09/28/20 09:58 90 20 96 Nasal Cannula 2.0 28 92 20 95 09/28/20 09:44 92 20 95 Nasal Cannula 2.0 28 09/28/20 09:43 95 Nasal Cannula 2.0 28 09/28/20 09:00 Room Air 09/28/20 08:14 73 157/104 09/28/20 08:14 157/104 09/28/20 08:00 97.7 83 20 148/92 (110) 97 09/28/20 04:00 97.5 78 20 148/95 (112) 98 09/28/20 00:00 97.7 78 20 119/72 (88) 97 09/27/20 21:00 Nasal Cannula 2.0 09/27/20 20:00 97.5 77 20 141/95 (110) 96 09/27/20 19:58 97 Nasal Cannula 2.0 28 09/27/20 19:58 88 18 94 Nasal Cannula 2.0 28 09/27/20 19:58 92 18 99 Nasal Cannula 2.0 28 88 18 96 09/27/20 18:25 77 148/98 (115) Intake and Output 09/27/20 09/28/20 19:00 07:00 Output Total 1575 ml 400 ml Balance -1575 ml -400 ml Output Urine Total 1575 ml 400 ml Height (Feet): 5 Height (Inches): 9.00 Weight (Pounds): 220 General Appearance: no apparent distress, alert Neck: supple Cardiovascular: regular rhythm Respiratory/Chest: normal breath sounds Abdomen: non tender, soft Extremities: non-tender Assessment/Plan Assessment/Plan: pna dysphasia poor po intake dementia generalized weakness st eval and tx dysphasia diet iv abx iv decadrone fio2 id and pulmo on the case dw charge nurse Vinnie Diego MD Sep 28, 2020 16:34
--- NOTE | 2020-09-28 17:29 | NUR ---
Speech Note (Dysphagia) S: More alert and talking a bit clearer, less cough, voice is less wet O: PO with diet modification: Pt tolerated on pureed and honey and nectar thick liquid. Pt aspirates on thin liquid. A/P 1. Oropharyngeal dysphagia -recovering from aspiration pneumonia Pureed and Honey thick liquid diet with aspiration precaution. Will complete VSS next week if he is still here. Brennan Jha
--- NOTE | 2020-09-28 19:27 | NUR ---
NURSE HAND-OFF: Important Events on Shift:[]diet advanced, IV d/c'd per pt. Patient Status: []awake Diet: regular puree moist, honey thick liquids Pending Orders: na Pending Results/Labs:na Pending MD notification:na Latest Vital Signs: Temperature 98.4 , Pulse 82 , B/P 138 /85 , Respiratory Rate 20 , O2 SAT 98 , Room Air, O2 Flow Rate 2.0 . Vital Sign Comment: stable Latest Levine Fall Score: 50 Fall Risk: High Risk Safety Measures: Call light Within Reach, Bed Alarm Zone 1, Side Rails Side Rails x2, Bed position Low and Locked. Fall Precautions: Yellow Socks Report given to IWONA Hobbs.
--- NOTE | 2020-09-28 19:33 | NUR ---
NURSE NOTES: Received in bed, awake and alert x2. On room air at this time with no signs of distress or SOB. Bed locked and in lowest position. Call light in reach. Bed alarm on. Will continue plan of care.
[2020-09-28 20:00] VITALS: BP 117/75
--- NOTE | 2020-09-28 20:24 | Psychiatric Progress Note ---
Psychiatry Progress Note Psychiatry Progress Note Medications Current Medications Medications (Trade) Dose Ordered Sig/Dominic Route PRN Reason Start Time Stop Time Status Last Admin Dose Admin Acetaminophen (Tylenol) 650 mg Q4H PRN ORAL Mild Pain (Pain Scale 1-3) 09/23/20 14:00 10/23/20 13:59 Albuterol/ Ipratropium (Albuterol/ Ipratropium) 3 ml TIDRT HHN 09/26/20 13:00 10/01/20 12:59 09/28/20 19:00 Amlodipine Besylate (Norvasc) 5 mg DAILY ORAL 09/27/20 16:30 10/27/20 16:29 09/28/20 08:14 Aspirin (ASA) 81 mg DAILY ORAL 09/24/20 09:00 11/08/20 08:59 09/28/20 08:14 Atorvastatin Calcium (Lipitor) 20 mg BEDTIME ORAL 09/23/20 21:00 12/22/20 20:59 09/27/20 20:41 Barium Sulfate (Varibar Honey) 250 ml NOW PRN MC RAD 09/27/20 20:45 09/30/20 20:40 Barium Sulfate (Varibar [place]) 240 ml NOW PRN MC RAD 09/27/20 20:45 09/30/20 20:40 Barium Sulfate (Varibar Pudding) 230 ml NOW PRN MC RAD 09/27/20 20:45 09/30/20 20:40 Barium Sulfate (Varibar Thin Liquid powder) 148 gm NOW PRN MC RAD 09/27/20 20:45 09/30/20 20:40 Benztropine Mesylate (Cogentin) 1 mg BEDTIME ORAL 09/23/20 21:00 10/23/20 20:59 09/27/20 20:41 Ceftriaxone Sodium 1 gm/ Dextrose 55 ml @ 110 mls/hr Q24H IVPB 09/24/20 10:00 10/01/20 09:59 09/28/20 10:39 Clonidine HCl (Catapres Tab) 0.1 mg Q4H PRN ORAL For High Blood Pressure 09/23/20 20:00 12/22/20 19:59 09/27/20 15:18 Dextrose 1,000 ml @ 75 mls/hr [id number] IV 09/27/20 22:15 10/27/20 22:14 09/28/20 10:39 Divalproex Sodium (Depakote Sprinkles) 125 mg BID ORAL 09/23/20 18:00 10/23/20 17:59 09/28/20 17:47 Docusate Sodium (Colace) 250 mg TWICE A DAY ORAL 09/27/20 21:00 10/27/20 20:59 09/28/20 17:47 Enoxaparin Sodium (Lovenox) 40 mg DAILY SUBQ 09/24/20 09:00 12/23/20 08:59 09/28/20 08:17 Lactulose (Cephulac) 30 gm BIDPRN PRN ORAL Constipation 09/27/20 18:45 10/27/20 18:44 Lisinopril (ZestriL) 10 mg DAILY ORAL 09/24/20 09:00 10/24/20 08:59 09/28/20 08:14 Risperidone (RisperDAL) 1 mg BEDTIME ORAL 09/24/20 21:00 11/08/20 20:59 09/27/20 20:41 Neurological/Psychiatric: Reports: anxiety, depressed, emotional problems, weakness Allergies: Coded Allergies: No Known Allergies (Unverified , 09/23/20) Objective Data Height (Feet): 5 Height (Inches): 9.00 Weight (Pounds): 220 General Appearance: no apparent distress, alert Additional Comments: Alert and oriented times self, place, and situation. Mood is anxious. Affect is blunted, congruent with mood. Thought process is concrete. Thought content, there is no suicidal or homicidal ideation. Cognition is impaired. Insight and judgment impaired. Blaze Kendrick MD Sep 28, 2020 20:24
[2020-09-28] MEDS: Benztropine 1mg tab ORAL SCH (20:53)
[2020-09-28] MEDS: Atorvastatin 20mg tab ORAL SCH (20:53)
--- NOTE | 2020-09-28 21:45 | Consultation ---
DATE OF CONSULTATION: 09/28/2020 HISTORY OF PRESENT ILLNESS: This is a 69-year-old male with a history of depression, who is admitted to the hospital for COVID-19. The patient presents with anxiety, hopelessness, helplessness, and decreased energy. PAST PSYCHIATRIC HISTORY: Depression and anxiety. PAST MEDICAL HISTORY: Significant for COVID-19, hypertension, hyperlipidemia. ALLERGIES: No known drug allergies. SUBSTANCE ABUSE HISTORY: No known history of illicit drug use or alcohol. MENTAL STATUS EXAMINATION: The patient is alert, oriented times self, place, situation. Mood is depressed. Affect is blunted, congruent with mood. Thought process is concrete. Thought content, no suicidal or homicidal ideation. Cognition is intact. Insight and judgment is fair. ASSESSMENT: [place] I Major depressive disorder. [place] II Deferred. [place] III As above. [place] IV Low. [place] V 50 PLAN: 1. We will start the patient on Lexapro. 2. Provide the patient with reality orientation and supportive therapy. Blaze Kendrick M.D. DR: AMY JOB#: [id number] CC: ANTONINA
[2020-09-29] VITALS: BP 133/74
[2020-09-29 04:00] VITALS: BP 117/78
--- NOTE | 2020-09-29 07:29 | NUR ---
NURSE NOTES: Received pt from Faby, pt was resting comfortably, no acute distress, call light w/in reach.
--- NOTE | 2020-09-29 07:40 | NUR ---
NURSE HAND-OFF: Important Events on Shift: No events Patient Status: Stable Diet: Reg pureed moist Pending Orders: N/A Pending Results/Labs: BMP, CMP, CBC Pending MD notification: N/A Latest Vital Signs: Temperature 97.1 , Pulse 72 , B/P 117 /78 , Respiratory Rate 24 , O2 SAT 97 , Room Air, O2 Flow Rate 2.0 . Vital Sign Comment: N/A Latest Levine Fall Score: 50 Fall Risk: High Risk Safety Measures: Call light Within Reach, Bed Alarm Zone 1, Side Rails Side Rails x2, Bed position Low and Locked. Fall Precautions: Yellow Socks Report given to IWONA Lua.
[2020-09-29] MEDS: Albuterol/Ipratropium 3ml neb HHN SCH ×3 (07:41→20:22)
[2020-09-29 08:00] VITALS: BP_SYST 139; BP_SYST 96; BP_DIAS 55; BP_DIAS 88
[2020-09-29] MEDS: Lisinopril 10mg tab ORAL SCH (09:25)
[2020-09-29] MEDS: Docusate 250mg cap ORAL SCH ×2 (09:25→17:23)
[2020-09-29] MEDS: Aspirin Baby 81mg ORAL SCH (09:25)
[2020-09-29] MEDS: cefTRIAXone 1 GM in D5W 55 ML IVPB SCH (09:26)
[2020-09-29] MEDS: Enoxaparin 40mg Inj SUBQ SCH (09:27)
[2020-09-29] MEDS: Depakote 125mg Sprinkles ORAL SCH ×2 (09:40→17:23)
--- NOTE | 2020-09-29 10:56 | General Progress Note ---
Subjective Allergies: Coded Allergies: No Known Allergies (Unverified , 09/23/20) Subjective c/o cough weakness on high o2 dysphasia dysphasia Objective Last 24 Hour Vital Signs Date Time Temp Pulse Resp B/P (MAP) Pulse Ox O2 Delivery O2 Flow Rate FiO2 09/29/20 09:26 89 139/88 09/29/20 09:25 139/88 09/29/20 08:00 97.4 76 18 96/55 (69) 93 09/29/20 07:45 99 Room Air 21 09/29/20 07:45 85 18 98 Room Air 21 09/29/20 07:40 81 18 100 Room Air 21 79 18 98 09/29/20 04:00 97.1 72 24 117/78 (91) 97 09/29/20 00:00 97.0 94 18 133/74 (93) 94 09/28/20 20:11 Room Air 09/28/20 20:00 97.5 90 20 117/75 (89) 94 09/28/20 19:04 82 20 98 Room Air 21 09/28/20 19:03 98 Room Air 21 09/28/20 19:01 86 18 100 Room Air 21 82 18 98 09/28/20 16:00 98.4 84 20 138/85 (102) 97 09/28/20 14:41 97 20 97 Nasal Cannula 2.0 28 96 18 94 09/28/20 12:00 97.8 85 20 145/86 (105) 97 Intake and Output 09/28/20 09/29/20 19:00 07:00 Intake Total 300 ml Output Total 600 ml Balance -600 ml 300 ml Intake Oral 300 ml Output Urine Total 600 ml # Voids 3 Height (Feet): 5 Height (Inches): 9.00 Weight (Pounds): 220 EENT: PERRL/EOMI Neck: supple Cardiovascular: regular rhythm Respiratory/Chest: lungs clear Abdomen: non tender, soft Assessment/Plan Assessment/Plan: pna dysphasia poor po intake dementia generalized weakness st eval and tx dysphasia diet iv abx iv decadrone fio2 id and pulmo on the case dw charge nurse Vinnie Diego MD Sep 29, 2020 10:56
[2020-09-29 12:00] VITALS: BP 129/86
--- NOTE | 2020-09-29 12:10 | NUR ---
CASE MANAGEMENT:REVIEW 09/29/20 SI: PNA. DYSPHAGIA 97.4 76 18 96/55 93% ON RA IS: IV ROCEPHIN Q24 IVF@75/HR NORVASC PO QD DUONEB HHN TID RISPERDAL PO QHS LISINOPRIL PO QD ASA PO QD LOVENOX SQ QD COGENTIN PO QHS DEPAKOTE PO BID : MED/SURG STATUS 4 EAST DCP: FROM [facility] PLAN: ADVANCE TO REGULAR DIET
--- NOTE | 2020-09-29 13:37 | Infectious Diseases Prog Note ---
Assessment/Plan Assessment/Plan A 1. Pneumonia treated COVID19 test is negative. 2. Hypertension. 3. Hyperlipidemia. 4. Depression. P 1. Discontinue ceftriaxone Subjective ROS Limited/Unobtainable: Yes Constitutional: Reports: no symptoms Allergies: Coded Allergies: No Known Allergies (Unverified , 09/23/20) Objective Last 24 Hour Vital Signs Date Time Temp Pulse Resp B/P (MAP) Pulse Ox O2 Delivery O2 Flow Rate FiO2 09/29/20 13:09 82 18 99 Room Air 21 83 18 97 09/29/20 09:26 89 139/88 09/29/20 09:25 139/88 09/29/20 09:00 Room Air 09/29/20 08:00 97.4 76 18 96/55 (69) 93 09/29/20 07:45 99 Room Air 21 09/29/20 07:45 85 18 98 Room Air 21 09/29/20 07:40 81 18 100 Room Air 21 79 18 98 09/29/20 04:00 97.1 72 24 117/78 (91) 97 09/29/20 00:00 97.0 94 18 133/74 (93) 94 09/28/20 20:11 Room Air 09/28/20 20:00 97.5 90 20 117/75 (89) 94 09/28/20 19:04 82 20 98 Room Air 21 09/28/20 19:03 98 Room Air 21 09/28/20 19:01 86 18 100 Room Air 21 82 18 98 09/28/20 16:00 98.4 84 20 138/85 (102) 97 09/28/20 14:41 97 20 97 Nasal Cannula 2.0 28 96 18 94 Height (Feet): 5 Height (Inches): 9.00 Weight (Pounds): 220 HEENT: mucous membranes moist Respiratory/Chest: lungs clear Cardiovascular: normal rate Abdomen: soft, non tender Extremities: no edema Neurologic/Psychiatric: alert, responsive Current Medications Medications (Trade) Dose Ordered Sig/Dominic Route PRN Reason Start Time Stop Time Status Last Admin Dose Admin Acetaminophen (Tylenol) 650 mg Q4H PRN ORAL Mild Pain (Pain Scale 1-3) 09/23/20 14:00 10/23/20 13:59 Albuterol/ Ipratropium (Albuterol/ Ipratropium) 3 ml TIDRT HHN 09/26/20 13:00 10/01/20 12:59 09/29/20 13:07 Amlodipine Besylate (Norvasc) 5 mg DAILY ORAL 09/27/20 16:30 10/27/20 16:29 09/29/20 09:26 Aspirin (ASA) 81 mg DAILY ORAL 09/24/20 09:00 11/08/20 08:59 09/29/20 09:25 Atorvastatin Calcium (Lipitor) 20 mg BEDTIME ORAL 09/23/20 21:00 12/22/20 20:59 09/28/20 20:53 Barium Sulfate (Varibar Honey) 250 ml NOW PRN MC RAD 09/27/20 20:45 09/30/20 20:40 Barium Sulfate (Varibar [place]) 240 ml NOW PRN MC RAD 09/27/20 20:45 09/30/20 20:40 Barium Sulfate (Varibar Pudding) 230 ml NOW PRN MC RAD 09/27/20 20:45 09/30/20 20:40 Barium Sulfate (Varibar Thin Liquid powder) 148 gm NOW PRN MC RAD 09/27/20 20:45 09/30/20 20:40 Benztropine Mesylate (Cogentin) 1 mg BEDTIME ORAL 09/23/20 21:00 10/23/20 20:59 09/28/20 20:53 Ceftriaxone Sodium 1 gm/ Dextrose 55 ml @ 110 mls/hr Q24H IVPB 09/24/20 10:00 10/01/20 09:59 09/29/20 09:26 Clonidine HCl (Catapres Tab) 0.1 mg Q4H PRN ORAL For High Blood Pressure 09/23/20 20:00 12/22/20 19:59 09/27/20 15:18 Dextrose 1,000 ml @ 75 mls/hr [id number] IV 09/27/20 22:15 10/27/20 22:14 09/28/20 10:39 Divalproex Sodium (Depakote Sprinkles) 125 mg BID ORAL 09/23/20 18:00 10/23/20 17:59 09/29/20 09:40 Docusate Sodium (Colace) 250 mg TWICE A DAY ORAL 09/27/20 21:00 10/27/20 20:59 09/29/20 09:25 Enoxaparin Sodium (Lovenox) 40 mg DAILY SUBQ 09/24/20 09:00 12/23/20 08:59 09/29/20 09:27 Lactulose (Cephulac) 30 gm BIDPRN PRN ORAL Constipation 09/27/20 18:45 10/27/20 18:44 Lisinopril (ZestriL) 10 mg DAILY ORAL 09/24/20 09:00 10/24/20 08:59 09/29/20 09:25 Risperidone (RisperDAL) 1 mg BEDTIME ORAL 09/24/20 21:00 11/08/20 20:59 09/28/20 20:53 Chencho Carpenter MD Sep 29, 2020 13:37
--- NOTE | 2020-09-29 14:05 | NUR ---
NURSE NOTES: Pt transferred from . received report from IWONA Lua. Pt awake, a&ox1/2, slurred and delayed speech. No acute distress note. IV intact and patent running IVF. Skin intact, applied optifoam on sacrum and manuel. heals. No belongings. Bed low position, locked. call light within reach. Will continue to monitor.
--- NOTE | 2020-09-29 14:15 | NUR ---
HAND-OFF: Report given to IWONA Brownlee. transferred to 3E. pt was stable condition.
[2020-09-29 16:00] VITALS: BP 138/95
[2020-09-29] MEDS ORDERED: Tubing IV Secondary IV ONE (16:13)
--- NOTE | 2020-09-29 19:28 | NUR ---
NURSE HAND-OFF: Important Events on Shift:[Transferred from ] Patient Status: [stable] Diet: [reg puree] Pending Orders: [] Pending Results/Labs:[] Pending MD notification:[] Latest Vital Signs: Temperature 97.5 , Pulse 83 , B/P 138 /95 , Respiratory Rate 18 , O2 SAT 96 , Room Air, O2 Flow Rate 2.0 . Vital Sign Comment: [stable] Latest Levine Fall Score: 50 Fall Risk: High Risk Safety Measures: Call light Within Reach, Bed Alarm Zone 1, Side Rails Side Rails x2, Bed position Low and Locked. Fall Precautions: Yellow Socks Report given to [IWONA Ellington].
--- NOTE | 2020-09-29 20:19 | NUR ---
NURSE NOTES: patient awake,appears no pain or discomfort, calm no distress noted.
[2020-09-29 20:20] VITALS: BP 131/75
[2020-09-29] MEDS: Atorvastatin 20mg tab ORAL SCH (21:21)
[2020-09-29] MEDS: Benztropine 1mg tab ORAL SCH (21:21)
[2020-09-30] VITALS: BP 138/85
[2020-09-30 04:00] VITALS: BP 137/82
--- NOTE | 2020-09-30 06:49 | NUR ---
NURSE HAND-OFF: Important Events on Shift:[]patient slept well. no respiratory distress, no discomfort noted. on aspiration precaution. Patient Status: [] stable Diet: [] ( puree moist) patient is a feeder Pending Orders: [] none Pending Results/Labs:[]none Pending MD notification:[]none Latest Vital Signs: Temperature 98.0 , Pulse 83 , B/P 137 /82 , Respiratory Rate 18 , O2 SAT 75 , Room Air, O2 Flow Rate 2.0 . Vital Sign Comment: [] Latest Levine Fall Score: 50 Fall Risk: High Risk Safety Measures: Call light Within Reach, Bed Alarm Zone 1, Side Rails Side Rails x3, Bed position Low and Locked. Fall Precautions: Yellow Socks Yellow Gown Door Sign Report given to []. Addendum: 09/30/20 at 0729 by Rakel Browning RN report given to masood isaacs
[2020-09-30] MEDS: Albuterol/Ipratropium 3ml neb HHN SCH ×3 (07:15→19:22)
--- NOTE | 2020-09-30 07:30 | NUR ---
NURSE NOTES: Patient lying in bed awake. No complain of pain or distress at this time. IV dressing intact and dry. Bed lowest position. Call light within reach. Will continue to monitor.
[2020-09-30 08:00] VITALS: BP 151/98
[2020-09-30] MEDS: Depakote 125mg Sprinkles ORAL SCH ×2 (08:55→17:34)
[2020-09-30] MEDS: Docusate 250mg cap ORAL SCH ×2 (08:55→17:34)
[2020-09-30] MEDS: Aspirin Baby 81mg ORAL SCH (08:56)
[2020-09-30] MEDS: Lisinopril 10mg tab ORAL SCH (08:56)
[2020-09-30] MEDS: Enoxaparin 40mg Inj SUBQ SCH (09:02)
[2020-09-30 12:00] VITALS: BP 157/101
--- NOTE | 2020-09-30 14:03 | NUR ---
CASE MANAGEMENT:REVIEW 09/30/20 SI: PNA. DYSPHAGIA 97.2 73 18 151/98 97% ON RA IS: IVF@75/HR NORVASC PO QD DUONEB HHN TID RISPERDAL PO QHS LISINOPRIL PO QD ASA PO QD LOVENOX SQ QD : MED/SURG STATUS 4 EAST DCP: FROM [facility] PLAN: ADVANCE TO REGULAR DIET
[2020-09-30 16:00] VITALS: BP 137/80
--- NOTE | 2020-09-30 19:30 | NUR ---
NURSE HAND-OFF: Important Events on Shift:N/A Patient Status: Stable Diet: Regular (pureed-moist) Pending Orders: N/A Pending Results/Labs: CBC, BMP on 10/01 Pending MD notification:N/A Latest Vital Signs: Temperature 98.4 , Pulse 95 , B/P 137 /80 , Respiratory Rate 18 , O2 SAT 96 , Room Air, O2 Flow Rate 2.0 . Vital Sign Comment: Stable Latest Levine Fall Score: 50 Fall Risk: High Risk Safety Measures: Call light Within Reach, Bed Alarm Zone 1, Side Rails Side Rails x3, Bed position Low and Locked. Fall Precautions: Yellow Socks Yellow Gown Door Sign Patient Fall Education Report given to Junie RN and Jose A BUSTILLO. Patient in stable condition.
--- NOTE | 2020-09-30 19:45 | NUR ---
NURSE NOTES: Received report from Sonido BUSTILLO. Patient is awake, alert and oriented x2. On room air, breathing is even but suction needed for secretion coming out of mouth and barking cough. Will suction mouth. Patient has condom cath intact and draining well. Optifoam on sacral area noted. IV left hand is infiltrated with IVF and discontinued. Bed low and locked. Call light within reach.
[2020-09-30 20:00] VITALS: BP 141/99
[2020-09-30] MEDS: Atorvastatin 20mg tab ORAL SCH (20:55)
[2020-09-30] MEDS: Benztropine 1mg tab ORAL SCH (20:55)
--- NOTE | 2020-09-30 22:00 | NUR ---
NURSE NOTES: IV inserted on right wrist 24g. IVF running as ordered. IV site intact and patent with no bleeding
--- NOTE | 2020-09-30 23:18 | General Progress Note ---
Subjective Constitutional: Denies: no symptoms, chills, diaphoresis, fever, malaise, weakness, other HEENT: Denies: no symptoms, eye pain, blurred vision, tearing, double vision, ear pain, ear discharge, nose pain, nose congestion, throat pain, throat swelling, mouth pain, mouth swelling, other Cardiovascular: Denies: no symptoms, chest pain, edema, irregular heart rate, lightheadedness, palpitations, syncope, other Respiratory: Denies: no symptoms, cough, orthopnea, shortness of breath, SOB with excertion, SOB at rest, sputum, stridor, wheezing, other Gastrointestinal/Abdominal: Denies: no symptoms, abdomen distended, abdominal pain, black stools, tarry stools, blood in stool, constipated, diarrhea, difficulty swallowing, nausea, poor appetite, poor fluid intake, rectal bleeding, vomiting, other Genitourinary: Denies: no symptoms, burning, discharge, frequency, flank pain, hematuria, incontinence, pain, urgency, other Neurologic/Psychiatric: Denies: no symptoms, anxiety, depressed, emotional problems, headache, numbness, paresthesia, pre-existing deficit, seizure, tingling, tremors, weakness, other Endocrine: Denies: no symptoms, excessive sweating, flushing, intolerance to cold, intolerance to heat, increased hunger, increased thirst, increased urine, unexplained weight gain, unexplained weight loss, other Allergies: Coded Allergies: No Known Allergies (Unverified , 09/23/20) Subjective 09/30 covering, labs reviewed, off ceftriaxone, seen by id and psych, meds reviewed Objective Last 24 Hour Vital Signs Date Time Temp Pulse Resp B/P (MAP) Pulse Ox O2 Delivery O2 Flow Rate FiO2 09/30/20 20:00 98.4 91 18 141/99 (113) 98 09/30/20 19:23 92 18 99 Room Air 21 90 18 96 09/30/20 19:22 96 Room Air 21 09/30/20 16:00 98.4 95 18 137/80 (99) 95 09/30/20 13:50 74 18 9 Room Air 21 75 18 97 09/30/20 12:00 97.9 78 18 157/101 (119) 95 09/30/20 09:00 Room Air 09/30/20 08:56 73 151/98 09/30/20 08:56 151/98 09/30/20 08:00 97.2 73 18 151/98 (115) 97 09/30/20 07:17 97 Room Air 21 09/30/20 07:16 72 18 98 Room Air 21 71 18 97 09/30/20 04:00 98.0 18 137/82 (100) 75 09/30/20 00:00 97.9 16 138/85 (102) 71 Intake and Output 09/29/20 09/30/20 19:00 07:00 Intake Total 400 ml Output Total 300 ml 800 ml Balance 100 ml -800 ml Intake Oral 400 ml Output Urine Total 300 ml 800 ml Height (Feet): 5 Height (Inches): 9.00 Weight (Pounds): 220 Objective EENT: PERRL/EOMI Neck: supple Cardiovascular: regular rhythm Respiratory/Chest: lungs clear Abdomen: non tender, soft Assessment/Plan Assessment/Plan: pna dysphasia poor po intake dementia generalized weakness st eval and tx dysphasia diet iv abx iv decadrone fio2 id and pulmo on the case dw charge nurse Kathy Linares [employer] Sep 30, 2020 23:18
[2020-10-01] VITALS: BP 110/73
[2020-10-01 04:00] VITALS: BP 109/62
[2020-10-01 07:03] LABS: BASOPHILS % (AUTO) 0.4 % (0.0-2.0); EOSINOPHILS % (AUTO) 1.4 % (0.0-3.0); HEMATOCRIT 38.6 % (42.0-52.0); HEMOGLOBIN 13.5 G/DL (14.2-18.0); LYMPHOCYTES % (AUTO) 12.3 % (20.0-45.0); MEAN CORPUSCULAR VOLUME 86 FL (80-99); MONOCYTES % (AUTO) 9.9 % (1.0-10.0); PLATELET COUNT 188 K/UL (150-450); RED BLOOD COUNT 4.51 M/UL (4.70-6.10); RED CELL DISTRIBUTION WIDTH 13.2 % (11.6-14.8); WHITE BLOOD COUNT 7.4 K/UL (4.8-10.8)
--- NOTE | 2020-10-01 07:22 | NUR ---
NURSE NOTES: Handoff received from Junie and Jose A RNs. Patient is awake, non verbal, no signs of acute distress noted. IV is intact and running IVF as ordered. Condom cath is in place and draining to gravity. Suction is set up at bedside. Bed is low and locked, side rails up x2, call light is within reach.
--- NOTE | 2020-10-01 07:25 | NUR ---
NURSE HAND-OFF: Important Events on Shift:[oral suction prn, no BM, new IV access] Patient Status: [stable] Diet: [Regular pureed] Pending Orders: [] Pending Results/Labs:[] Pending MD notification:[] Latest Vital Signs: Temperature 97.1 , Pulse 76 , B/P 109 /62 , Respiratory Rate 18 , O2 SAT 96 , Room Air, O2 Flow Rate 2.0 . Vital Sign Comment: [] Latest Levine Fall Score: 50 Fall Risk: High Risk Safety Measures: Call light Within Reach, Bed Alarm Zone 1, Side Rails Side Rails x3, Bed position Low and Locked. Fall Precautions: Yellow Socks Yellow Gown Door Sign Patient Fall Education Report given to [Seymour DE LA CRUZ RN].
[2020-10-01] MEDS: Albuterol/Ipratropium 3ml neb HHN SCH (07:54)
[2020-10-01 08:00] VITALS: BP 119/72
[2020-10-01 08:02] LABS: ANION GAP 8 mmol/L (5-15); BLOOD UREA NITROGEN 13 mg/dL (7-18); CALCIUM 8.3 MG/DL (8.5-10.1); CARBON DIOXIDE 27 MMOL/L (21-32); CHLORIDE 101 MMOL/L (98-107); CREATININE 1.1 MG/DL (0.55-1.30); POTASSIUM 3.6 MMOL/L (3.5-5.1); SODIUM 136 MMOL/L (136-145)
[2020-10-01] MEDS: Aspirin Baby 81mg ORAL SCH (08:40)
[2020-10-01] MEDS: Lisinopril 10mg tab ORAL SCH (08:40)
[2020-10-01] MEDS: Docusate 250mg cap ORAL SCH ×2 (08:40→17:49)
[2020-10-01] MEDS: Depakote 125mg Sprinkles ORAL SCH ×2 (08:41→17:49)
[2020-10-01] MEDS: Enoxaparin 40mg Inj SUBQ SCH (08:42)
[2020-10-01 12:00] VITALS: BP 156/90
--- NOTE | 2020-10-01 12:09 | Infectious Diseases Prog Note ---
Assessment/Plan Assessment/Plan antibiotics : none A 1. Pneumonia s/p rx COVID-19 test is negative. 2. Hypertension. 3. Hyperlipidemia. 4. Depression. P 1. continue off antibiotics 2. We will follow up cultures. Subjective ROS Limited/Unobtainable: Yes Allergies: Coded Allergies: No Known Allergies (Unverified , 09/23/20) Objective Last 24 Hour Vital Signs Date Time Temp Pulse Resp B/P (MAP) Pulse Ox O2 Delivery O2 Flow Rate FiO2 10/01/20 09:00 Room Air 10/01/20 08:40 92 119/72 10/01/20 08:40 119/72 10/01/20 08:04 90 18 99 Room Air 21 67 18 99 10/01/20 08:00 97.4 92 18 119/72 (88) 96 10/01/20 07:53 99 Room Air 21 10/01/20 04:00 97.1 76 18 109/62 (78) 96 10/01/20 00:00 97.4 78 18 110/73 (85) 98 09/30/20 21:00 Room Air 09/30/20 20:00 98.4 91 18 141/99 (113) 98 09/30/20 19:23 92 18 99 Room Air 21 90 18 96 09/30/20 19:22 96 Room Air 21 09/30/20 16:00 98.4 95 18 137/80 (99) 95 09/30/20 13:50 74 18 9 Room Air 21 75 18 97 Height (Feet): 5 Height (Inches): 9.00 Weight (Pounds): 220 Respiratory/Chest: lungs clear Cardiovascular: normal rate, regular rhythm, no gallop/murmur Abdomen: soft, non tender Extremities: no edema Laboratory Tests Test 10/01/20 05:25 White Blood Count 7.4 K/UL (4.8-10.8) Red Blood Count 4.51 M/UL (4.70-6.10) L Hemoglobin 13.5 G/DL (14.2-18.0) L Hematocrit 38.6 % (42.0-52.0) L Mean Corpuscular Volume 86 FL (80-99) Mean Corpuscular Hemoglobin 30.0 PG (27.0-31.0) Mean Corpuscular Hemoglobin Concent 35.1 G/DL (32.0-36.0) Red Cell Distribution Width 13.2 % (11.6-14.8) Platelet Count 188 K/UL (150-450) Mean Platelet Volume 6.0 FL (6.5-10.1) L Neutrophils (%) (Auto) 76.0 % (45.0-75.0) H Lymphocytes (%) (Auto) 12.3 % (20.0-45.0) L Monocytes (%) (Auto) 9.9 % (1.0-10.0) Eosinophils (%) (Auto) 1.4 % (0.0-3.0) Basophils (%) (Auto) 0.4 % (0.0-2.0) Sodium Level 136 MMOL/L (136-145) Potassium Level 3.6 MMOL/L (3.5-5.1) Chloride Level 101 MMOL/L (98-107) Carbon Dioxide Level 27 MMOL/L (21-32) Anion Gap 8 mmol/L (5-15) Blood Urea Nitrogen 13 mg/dL (7-18) Creatinine 1.1 MG/DL (0.55-1.30) Estimat Glomerular Filtration Rate > 60 mL/min (>60) Glucose Level 98 MG/DL (74-106) Calcium Level 8.3 MG/DL (8.5-10.1) L Current Medications Medications (Trade) Dose Ordered Sig/Dominic Route PRN Reason Start Time Stop Time Status Last Admin Dose Admin Acetaminophen (Tylenol) 650 mg Q4H PRN ORAL Mild Pain (Pain Scale 1-3) 09/23/20 14:00 10/23/20 13:59 Albuterol/ Ipratropium (Albuterol/ Ipratropium) 3 ml TIDRT HHN 09/26/20 13:00 10/01/20 12:59 10/01/20 07:54 Amlodipine Besylate (Norvasc) 5 mg DAILY ORAL 09/27/20 16:30 10/27/20 16:29 10/01/20 08:40 Aspirin (ASA) 81 mg DAILY ORAL 09/24/20 09:00 11/08/20 08:59 10/01/20 08:40 Atorvastatin Calcium (Lipitor) 20 mg BEDTIME ORAL 09/23/20 21:00 12/22/20 20:59 09/30/20 20:55 Benztropine Mesylate (Cogentin) 1 mg BEDTIME ORAL 09/23/20 21:00 10/23/20 20:59 09/30/20 20:55 Clonidine HCl (Catapres Tab) 0.1 mg Q4H PRN ORAL For High Blood Pressure 09/23/20 20:00 12/22/20 19:59 09/27/20 15:18 Dextrose 1,000 ml @ 75 mls/hr [id number] IV 09/27/20 22:15 10/27/20 22:14 10/01/20 06:05 Divalproex Sodium (Depakote Sprinkles) 125 mg BID ORAL 09/23/20 18:00 10/23/20 17:59 10/01/20 08:41 Docusate Sodium (Colace) 250 mg TWICE A DAY ORAL 09/27/20 21:00 10/27/20 20:59 10/01/20 08:40 Enoxaparin Sodium (Lovenox) 40 mg DAILY SUBQ 09/24/20 09:00 12/23/20 08:59 10/01/20 08:42 Lactulose (Cephulac) 30 gm BIDPRN PRN ORAL Constipation 09/27/20 18:45 10/27/20 18:44 09/30/20 17:56 Lisinopril (ZestriL) 10 mg DAILY ORAL 09/24/20 09:00 10/24/20 08:59 10/01/20 08:40 Risperidone (RisperDAL) 1 mg BEDTIME ORAL 09/24/20 21:00 11/08/20 20:59 09/30/20 20:55 Venkata Coppola MD Oct 01, 2020 12:09
--- NOTE | 2020-10-01 12:46 | NUR ---
RD ASSESSMENT & RECOMMENDATIONS SEE CARE ACTIVITY FOR COMPLETE ASSESSMENT DAILY ESTIMATED NEEDS: Needs based on general/ 69.4kg 25-30 kcals/kg 8199-4496 total kcals 0.8-1.2 g protein/kg 56-83 g total protein 25-30 mL/kg 6671-9740 total fluid mLs NUTRITION DIAGNOSIS: Swallowing difficulty R/T dysphagia as evidenced by pt on pureed moist texture w/ HTL as per [employer] rec. CURRENT DIET:REGULAR, pureed moist w/ HTL PO DIET RECOMMENDATIONS: Liberalized REGULAR/ texture per [employer] ADDITIONAL RECOMMENDATIONS: * Calibrated bedscale wt * Monitor for continued good PO intake and tolerance * Monitor BMs: last recorded BM on 09/22 continue daily bowel regimen .
--- NOTE | 2020-10-01 14:27 | NUR ---
CASE MANAGEMENT:REVIEW SI;PNA. DYSPHAGIA. 98.4 99 18 156/90 96% ON RA IS;IVF D5 @ 75 ML/HR NORVASC PO QD ASA PO QD COGENTIN PO HS LIPITOR PO HS DEPAKENE PO BID MED SURG STATUS DCP'FORM [facility]
--- NOTE | 2020-10-01 14:49 | General Progress Note ---
Subjective Allergies: Coded Allergies: No Known Allergies (Unverified , 09/23/20) Subjective c/o cough weakness on high o2 dysphasia Objective Last 24 Hour Vital Signs Date Time Temp Pulse Resp B/P (MAP) Pulse Ox O2 Delivery O2 Flow Rate FiO2 10/01/20 12:00 98.0 99 18 156/90 (112) 98 10/01/20 09:00 Room Air 10/01/20 08:40 92 119/72 10/01/20 08:40 119/72 10/01/20 08:04 90 18 99 Room Air 21 67 18 99 10/01/20 08:00 97.4 92 18 119/72 (88) 96 10/01/20 07:53 99 Room Air 21 10/01/20 04:00 97.1 76 18 109/62 (78) 96 10/01/20 00:00 97.4 78 18 110/73 (85) 98 09/30/20 21:00 Room Air 09/30/20 20:00 98.4 91 18 141/99 (113) 98 09/30/20 19:23 92 18 99 Room Air 21 90 18 96 09/30/20 19:22 96 Room Air 21 09/30/20 16:00 98.4 95 18 137/80 (99) 95 Intake and Output 09/30/20 10/01/20 19:00 07:00 Intake Total 600 ml 675 ml Output Total 1000 ml 300 ml Balance -400 ml 375 ml Intake Oral 600 ml IV Total 675 ml Output Urine Total 1000 ml 300 ml Laboratory Tests 10/01/20 05:25: White Blood Count 7.4, Red Blood Count 4.51L, Hemoglobin 13.5L, Hematocrit 38.6L , Mean Corpuscular Volume 86, Mean Corpuscular Hemoglobin 30.0, Mean Corpuscular Hemoglobin Concent 35.1, Red Cell Distribution Width 13.2, Platelet Count 188, Mean Platelet Volume 6.0L, Neutrophils (%) (Auto) 76.0H, Lymphocytes (%) (Auto) 12.3L, Monocytes (%) (Auto) 9.9, Eosinophils (%) (Auto) 1.4, Basophils (%) (Auto) 0.4, Sodium Level 136, Potassium Level 3.6, Chloride Level 101, Carbon Dioxide Level 27, Anion Gap 8, Blood Urea Nitrogen 13, Creatinine 1.1, Estimat Glomerular Filtration Rate > 60, Glucose Level 98, Calcium Level 8.3L Height (Feet): 5 Height (Inches): 9.00 Weight (Pounds): 220 General Appearance: no apparent distress EENT: normal ENT inspection Neck: supple Cardiovascular: regular rhythm Respiratory/Chest: normal breath sounds Abdomen: non tender, soft Assessment/Plan Assessment/Plan: pna dysphasia poor po intake dementia generalized weakness st eval and tx dysphasia diet iv abx iv decadrone fio2 id and pulmo on the case dw charge nurse Vinnie Diego MD Oct 01, 2020 14:49
[2020-10-01 15:34] VITALS: BP 136/89
--- NOTE | 2020-10-01 19:45 | NUR ---
NURSE HAND-OFF: Important Events on Shift:[none] Patient Status: stable Diet: regular pureed moist, honey thick liquids Pending Orders: [none] Pending Results/Labs: Pending MD notification: Latest Vital Signs: Temperature 98.0 , Pulse 78 , B/P 136 /89 , Respiratory Rate 18 , O2 SAT 98 , Room Air, O2 Flow Rate 2.0 . Vital Sign Comment: stable Latest Levine Fall Score: 50 Fall Risk: High Risk Safety Measures: Call light Within Reach, Bed Alarm Zone 1, Side Rails Side Rails x3, Bed position Low and Locked. Fall Precautions: Yellow Socks Yellow Gown Door Sign Patient Fall Education Report given to Jose A BUSTILLO.
--- NOTE | 2020-10-01 19:57 | NUR ---
NURSE NOTES: Received report from Jaret BUSTILLO. Patient is awake, alert, and oriented x2. On room air, breathing is even and unlabored with no distress noted. Condom cath intact and draining well. IV right wrist intact and patent with no bleeding noted. IVF running as ordered. Crush meds with applesauce or thickened juice. Bed low and locked. Call light within reach.
[2020-10-01 20:00] VITALS: BP 135/82
[2020-10-01] MEDS: Atorvastatin 20mg tab ORAL SCH (20:50)
[2020-10-01] MEDS: Benztropine 1mg tab ORAL SCH (20:50)
[2020-10-02] VITALS (7 sets, daily range): BP systolic 128–182; BP diastolic 74–106
[2020-10-02 06:28] LABS: BASOPHILS % (AUTO) 2.3 % (0.0-2.0); EOSINOPHILS % (AUTO) 2.6 % (0.0-3.0); HEMATOCRIT 39.2 % (42.0-52.0); LYMPHOCYTES % (AUTO) 14.3 % (20.0-45.0); MEAN CORPUSCULAR VOLUME 83 FL (80-99); MONOCYTES % (AUTO) 11.1 % (1.0-10.0); NEUTROPHILS % (AUTO) 69.7 % (45.0-75.0); PLATELET COUNT 151 K/UL (150-450); RED BLOOD COUNT 4.74 M/UL (4.70-6.10); RED CELL DISTRIBUTION WIDTH 14.5 % (11.6-14.8); WHITE BLOOD COUNT 4.6 K/UL (4.8-10.8)
[2020-10-02 06:42] LABS: ANION GAP 6 mmol/L (5-15); CALCIUM 8.1 MG/DL (8.5-10.1); CARBON DIOXIDE 27 MMOL/L (21-32); CHLORIDE 104 MMOL/L (98-107); CREATININE 0.7 MG/DL (0.55-1.30); POTASSIUM 3.6 MMOL/L (3.5-5.1); SODIUM 137 MMOL/L (136-145)
--- NOTE | 2020-10-02 07:25 | NUR ---
NURSE HAND-OFF: Important Events on Shift: Suction x2 Patient Status: Stable Diet: Regular (moist pureed) Pending Orders: N/A Pending Results/Labs:N/A Pending MD notification:N/A Latest Vital Signs: Temperature 97.7 , Pulse 70 , B/P 129 /74 , Respiratory Rate 18 , O2 SAT 96 , Room Air, O2 Flow Rate 2.0 . Vital Sign Comment: VS stable Latest Levine Fall Score: 50 Fall Risk: High Risk Safety Measures: Call light Within Reach, Bed Alarm Zone 1, Side Rails Side Rails x3, Bed position Low and Locked. Fall Precautions: Yellow Socks Yellow Gown Door Sign Patient Fall Education Report given to Fatimah BUSTILLO.
[2020-10-02 07:48] LABS: BLOOD UREA NITROGEN 8 mg/dL (7-18)
[2020-10-02] MEDS: Aspirin Baby 81mg ORAL SCH (09:27)
[2020-10-02] MEDS: Docusate 250mg cap ORAL SCH ×2 (09:28→18:14)
[2020-10-02] MEDS: Depakote 125mg Sprinkles ORAL SCH ×2 (09:28→18:14)
[2020-10-02] MEDS: Lisinopril 10mg tab ORAL SCH (09:28)
[2020-10-02] MEDS: Enoxaparin 40mg Inj SUBQ SCH (09:30)
--- NOTE | 2020-10-02 10:57 | Infectious Diseases Prog Note ---
Assessment/Plan Assessment/Plan A 1. Pneumonia treated COVID19 test is negative. 2. Hypertension. 3. Hyperlipidemia. 4. Depression. P 1. Observe off antibiotic Subjective ROS Limited/Unobtainable: Yes Constitutional: Reports: no symptoms Allergies: Coded Allergies: No Known Allergies (Unverified , 09/23/20) Objective Last 24 Hour Vital Signs Date Time Temp Pulse Resp B/P (MAP) Pulse Ox O2 Delivery O2 Flow Rate FiO2 10/02/20 09:59 97.7 10/02/20 09:28 70 129/74 10/02/20 09:28 129/74 10/02/20 07:58 97.7 70 18 129/74 (92) 96 10/02/20 04:00 98.3 64 18 134/88 (103) 96 10/02/20 00:00 98.1 80 19 137/78 (97) 96 10/01/20 21:00 Room Air 10/01/20 20:00 98.3 77 20 135/82 (99) 96 10/01/20 15:34 98.0 78 18 136/89 (105) 98 10/01/20 12:00 98.0 99 18 156/90 (112) 98 Height (Feet): 5 Height (Inches): 9.00 Weight (Pounds): 220 General Appearance: no acute distress HEENT: mucous membranes moist Respiratory/Chest: lungs clear Cardiovascular: normal rate Abdomen: soft, non tender Genitourinary: other - condom catheter Neurologic/Psychiatric: alert, responsive Laboratory Tests Test 10/02/20 05:40 White Blood Count 4.6 K/UL (4.8-10.8) L Red Blood Count 4.74 M/UL (4.70-6.10) Hemoglobin 14.0 G/DL (14.2-18.0) L Hematocrit 39.2 % (42.0-52.0) L Mean Corpuscular Volume 83 FL (80-99) Mean Corpuscular Hemoglobin 29.6 PG (27.0-31.0) Mean Corpuscular Hemoglobin Concent 35.8 G/DL (32.0-36.0) Red Cell Distribution Width 14.5 % (11.6-14.8) Platelet Count 151 K/UL (150-450) Mean Platelet Volume 6.4 FL (6.5-10.1) L Neutrophils (%) (Auto) 69.7 % (45.0-75.0) Lymphocytes (%) (Auto) 14.3 % (20.0-45.0) L Monocytes (%) (Auto) 11.1 % (1.0-10.0) H Eosinophils (%) (Auto) 2.6 % (0.0-3.0) Basophils (%) (Auto) 2.3 % (0.0-2.0) H Sodium Level 137 MMOL/L (136-145) Potassium Level 3.6 MMOL/L (3.5-5.1) Chloride Level 104 MMOL/L (98-107) Carbon Dioxide Level 27 MMOL/L (21-32) Anion Gap 6 mmol/L (5-15) Blood Urea Nitrogen 8 mg/dL (7-18) Creatinine 0.7 MG/DL (0.55-1.30) Estimat Glomerular Filtration Rate > 60 mL/min (>60) Glucose Level 101 MG/DL (74-106) Calcium Level 8.1 MG/DL (8.5-10.1) L Current Medications Medications (Trade) Dose Ordered Sig/Dominic Route PRN Reason Start Time Stop Time Status Last Admin Dose Admin Acetaminophen (Tylenol) 650 mg Q4H PRN ORAL Mild Pain (Pain Scale 1-3) 09/23/20 14:00 10/23/20 13:59 10/02/20 09:29 Amlodipine Besylate (Norvasc) 5 mg DAILY ORAL 09/27/20 16:30 10/27/20 16:29 10/02/20 09:28 Aspirin (ASA) 81 mg DAILY ORAL 09/24/20 09:00 11/08/20 08:59 10/02/20 09:27 Atorvastatin Calcium (Lipitor) 20 mg BEDTIME ORAL 09/23/20 21:00 12/22/20 20:59 10/01/20 20:50 Benztropine Mesylate (Cogentin) 1 mg BEDTIME ORAL 09/23/20 21:00 10/23/20 20:59 10/01/20 20:50 Clonidine HCl (Catapres Tab) 0.1 mg Q4H PRN ORAL For High Blood Pressure 09/23/20 20:00 12/22/20 19:59 12/10/20 15:18 Dextrose 1,000 ml @ 75 mls/hr [id number] IV 09/27/20 22:15 10/27/20 22:14 10/02/20 09:27 Divalproex Sodium (Depakote Sprinkles) 125 mg BID ORAL 09/23/20 18:00 10/23/20 17:59 10/02/20 09:28 Docusate Sodium (Colace) 250 mg TWICE A DAY ORAL 09/27/20 21:00 10/27/20 20:59 10/02/20 09:28 Enoxaparin Sodium (Lovenox) 40 mg DAILY SUBQ 09/24/20 09:00 12/23/20 08:59 10/02/20 09:30 Lactulose (Cephulac) 30 gm BIDPRN PRN ORAL Constipation 09/27/20 18:45 10/27/20 18:44 09/30/20 17:56 Lisinopril (ZestriL) 10 mg DAILY ORAL 09/24/20 09:00 10/24/20 08:59 10/02/20 09:28 Risperidone (RisperDAL) 1 mg BEDTIME ORAL 09/24/20 21:00 11/08/20 20:59 10/01/20 20:50 Chencho Carpenter MD Oct 02, 2020 10:57
--- NOTE | 2020-10-02 11:01 | General Progress Note ---
Subjective Allergies: Coded Allergies: No Known Allergies (Unverified , 09/23/20) Subjective c/o cough weakness on high o2 dysphasia improving Objective Last 24 Hour Vital Signs Date Time Temp Pulse Resp B/P (MAP) Pulse Ox O2 Delivery O2 Flow Rate FiO2 10/02/20 09:59 97.7 10/02/20 09:28 70 129/74 10/02/20 09:28 129/74 10/02/20 07:58 97.7 70 18 129/74 (92) 96 10/02/20 04:00 98.3 64 18 134/88 (103) 96 10/02/20 00:00 98.1 80 19 137/78 (97) 96 10/01/20 21:00 Room Air 10/01/20 20:00 98.3 77 20 135/82 (99) 96 10/01/20 15:34 98.0 78 18 136/89 (105) 98 10/01/20 12:00 98.0 99 18 156/90 (112) 98 Intake and Output 10/01/20 10/02/20 19:00 07:00 Intake Total 500 ml 600 ml Output Total 550 ml 600 ml Balance -50 ml 0 ml Intake Oral 500 ml IV Total 600 ml Output Urine Total 550 ml 600 ml Laboratory Tests 10/02/20 05:40: White Blood Count 4.6L, Red Blood Count 4.74, Hemoglobin 14.0L, Hematocrit 39.2L , Mean Corpuscular Volume 83, Mean Corpuscular Hemoglobin 29.6, Mean Corpuscular Hemoglobin Concent 35.8, Red Cell Distribution Width 14.5, Platelet Count 151, Mean Platelet Volume 6.4L, Neutrophils (%) (Auto) 69.7, Lymphocytes (%) (Auto) 14.3L, Monocytes (%) (Auto) 11.1H, Eosinophils (%) (Auto) 2.6, Basophils (%) (Auto) 2.3H, Sodium Level 137, Potassium Level 3.6, Chloride Level 104, Carbon Dioxide Level 27, Anion Gap 6, Blood Urea Nitrogen 8, Creatinine 0.7, Estimat Glomerular Filtration Rate > 60, Glucose Level 101, Calcium Level 8.1L Height (Feet): 5 Height (Inches): 9.00 Weight (Pounds): 220 General Appearance: alert EENT: PERRL/EOMI Neck: supple Cardiovascular: regular rhythm Respiratory/Chest: crackles/rales Abdomen: non tender, soft Assessment/Plan Assessment/Plan: pna dysphasia poor po intake dementia generalized weakness st eval and tx dysphasia diet iv abx iv decadrone fio2 id and pulmo on the case dw charge nurse dc plan to snf Vinnie Diego MD Oct 02, 2020 11:01
--- NOTE | 2020-10-02 14:56 | NUR ---
DISCHARGE PLANNING PATIENT REFERRED BACK TO [facility] P [phone] F [phone] S/W YA AT [facility] AND PATIENT APPROVED TO RETURN TO ROOM 1-B ALF BLS AMBULANCE TRANSPORTATION SCHEDULED WITH [facility] WITH ETA @ 0128.
--- NOTE | 2020-10-02 15:15 | NUR ---
NURSE NOTES: PATIENT REMAINS STABLE. APPETITE VERY GOOD. DISCHARGE ORDER RECEIVED TO RETURN TO [facility]. PATIENT INFORMED. REPORT GIVEN TO MORGAN @ FACILITY. PATIENT HAS NO BELONGINGS. WILL BE TRANSPORTED BY EMS .
--- NOTE | 2020-10-02 18:30 | NUR ---
NURSE NOTES: [facility] SO EMS STAFF HERE TO READINESS PARAPROFESSIONAL PATIENT; REPORT GIVEN. STATES PATIENT BP ELEVATED 177/100. PATIENT CALM IN BED.EMS TO RE-CHECK BP IN 15 MINS. RE-CHECKED AND REPORTED TO CN BY EMS. PRIMARY NURSE OFF UNIT TRANSFERRING PATIENT. PLACED ON WILL CALL. PRIMARY RN RE-CHECKED BP 143/94 HR 88. PATIENT CALM AND SMILING. NO ANXIETY NOTED.
--- NOTE | 2020-10-02 19:22 | NUR ---
NURSE HAND-OFF: Important Events on Shift:WILL TRANSFER TO [facility]IA [facility] PLACED ON WILL CALL. Patient Status: STABLE Diet: NECTAR THICK REGULAR MOIST PUREED. Pending Orders: N/A Pending Results/Labs:N/A Pending MD notification:N/A Latest Vital Signs: Temperature 98.5 , Pulse 77 , B/P 151 /92 , Respiratory Rate 20 , O2 SAT 97 , Room Air, O2 Flow Rate 2.0 . Vital Sign Comment: N/A Latest Levine Fall Score: 70 Fall Risk: High Risk Safety Measures: Call light Within Reach, Bed Alarm Zone 1, Side Rails Side Rails x3, Bed position Low and Locked. Fall Precautions: Yellow Socks Yellow Gown Door Sign Patient Fall Education Report given to SHAMIKA Latif RN.
--- NOTE | 2020-10-02 19:44 | NUR ---
NURSE NOTES: Pt. received from IWONA Sheridan. Pt. AAOx2 on room air, breathing even and unlabored, no indications of respiratory distress, no complaints of pain. No IV access, pt. anticipating discharge 10/02, will follow up with [facility] when blood pressure stable. Bed low and locked, side rails x3 up, bed alarm active, and call light in reach.
[2020-10-02] MEDS: Atorvastatin 20mg tab ORAL SCH (20:59)
[2020-10-02] MEDS: Benztropine 1mg tab ORAL SCH (21:00)
[2020-10-03] VITALS: BP 108/65
--- NOTE | 2020-10-03 00:24 | NUR ---
NURSE NOTES: Pt. transferred via [facility] to [facility]. VSS, no belongings brought with pt and none sent, ID band removed, IV discontinued. Pt. safely off the unit.
--- NOTE | 2020-10-04 12:03 | Discharge Summary ---
Discharge Summary Discharge Summary _ DATE OF ADMISSION: 09/23/2020 DATE OF DISCHARGE: 10/03/2020 DISCHARGED BY: Dr. Diego REASON FOR ADMISSION: 69 years old male, resident of senior care facility, with past medical history of hypertension, COPD, bipolar disorder, schizophrenia , major depressive disorder, was sent for hypoxia. He denied chest pain . Upon evaluation patient required supplemental oxygen. Chest x-ray demonstrated patchy bilateral lower lobe infiltrates , suspicious for pneumonia. Laboratory work-up revealed no leukocytosis, stable hemoglobin, hematocrit and platelet count. Stable electrolytes and renal parameters. Lactic acid 1.4. Troponin 0.02 , pro BNP 178. EKG revealed sinus rhythm, no acute ischemic changes. Rapid COVID-19 was negative. Urinalysis revealed moderate bacteria , no pyuria , +1 protein . In emergency department patient received empiric antibiotic and admitted for further management. CONSULTANTS: ID specialist Dr. Coppola psychiatrist [facility] COURSE: Patient admitted to medical surgical floor. Antibiotic provided as per ID specialist recommendation. Supplemental oxygen provided and titrated to keep pulse oximetry above 92%. Pulmonary toilet provided. Urine culture revealed mixed urogenital contaminants. Blood culture revealed diphtheroids, likely contaminant. Sputum culture showed normal abdon Patient completed treatment for pneumonia while in the hospital. No fever, no leukocytosis . As patient clinically improved, he was able to be weaned to oxygen via nasal cannula. Patient demonstrated poor appetite. Bedside swallow evaluation revealed high aspiration risk. Strict aspiration precaution maintained. Diet texture provided as per speech therapist recommendation. Recommended video swallow evaluation , which can be done as outpatient. Blood pressure was managed with calcium channel luis carlos and MATTY inhibitor. Clonidine was on board as needed for blood pressure spikes. Antiplatelet therapy with aspirin and statin continued. DVT prophylaxis provided. SNF medication continued. Psychiatrist seen and evaluated patient , and started patient on Lexapro. Reality orientation and supportive therapy provided. Patient clinically stabilized and was ready for transfer back to senior care facility for continuation of care. FINAL DIAGNOSES: Pneumonia , status post treatment Hypertension Hyperlipidemia Dysphagia Major depressive disorder DISCHARGE MEDICATIONS: See Medication Reconciliation list. DISCHARGE INSTRUCTIONS: Patient was discharged to the senior care facility. Follow up with medical doctor at the facility. I have been assigned to dictate discharge summary for this account. I was not involved in the patient's management. Rebecca Moreno NP Oct 04, 2020 12:03
== END 2020-10-03 00:40 | DRG 139 ==
LOC: EDBD 08:36 → EMR 09:07 → EDBEDREQ 12:09 → 4E 12:37 → 3E 09-29 13:47
DX: J18.9 Pneumonia, unspecified organism (principal); F20.9 Schizophrenia, unspecified; R09.02 Hypoxemia; I10 Essential (primary) hypertension; E78.5 Hyperlipidemia, unspecified; R13.10 Dysphagia, unspecified; F03.90 Unspecified dementia, unspecified severity, without behavioral disturbance, psychotic disturbance, mood disturbance, and anxiety; R47.02 Dysphasia; N39.0 Urinary tract infection, site not specified; F41.9 Anxiety disorder, unspecified; F31.9 Bipolar disorder, unspecified
CPT/HCPCS: 36415; 71045; 80048; 80053; 81003; 82550; 82728; 83605; 83615; 83690; 83735; 83880; 84484; 85025; 85379; 85610; 85730; 86140; 87040; 87070; 87081; 87086; 87205; 93005; 94640; 94664; 96361; 96365; 96367; 96375; 99285; J7030; J7620; U0002

== ENCOUNTER 2020-10-09 20:38 | Emergency (ER) | payer MEDICAID ==
[~2020-10-09] VITALS: Ht 175.3 cm; Wt 79.4 kg
[~2020-10-09 20:38] MED LIST: ASPIRIN EC81 MG ORAL; ATORVASTATIN CA20 MG ORAL; BENZTROPINE MESY1 MG ORAL; HALDOL DEC100 MG/1 M IM; HALOPERIDO100 MG/1 M IM; LISINOPRIL10 MG ORAL; RISPERDAL1 MG PO
[2020-10-09 22:10] VITALS: BP 140/82
--- NOTE | 2020-10-09 22:10 | NUR ---
ED Nurse Note: pt NATI Edwards from [facility] [employer] [facility]. Per EMS report pt tested positive for COVID today and facility has been unable to control fevers, no Tylenol has been given to pt. Upon arrival pt is AAOx1, calm and cooperative with care. Rectal temperature 100.8, on RA sating 98% with ocassional cough without secretions observed. Other vital signs stable. Addendum: 10/09/20 at 2341 by LADAME ED Nurse Note: pt NATI Mcdonaldremedios from [facility] [employer] [facility]. Per EMS report pt tested positive for COVID today and facility has been unable to control fevers, no Tylenol has been given to pt. Upon arrival pt is AAOx1, calm and cooperative with care. Rectal temperature 100.8, on RA sating 93% with ocassional cough without secretions observed. Other vital signs stable.
[2020-10-09] MEDS ORDERED: Acetaminophen 500mg (ES) tab ORAL ONE (22:15)
--- NOTE | 2020-10-09 22:22 | Emergency Room Report ---
History of Present Illness General Chief Complaint: Fever Source: EMS Present Illness HPI Disclaimer: Please note that this report is being documented using DRAGON technology. This can lead to erroneous entry secondary to incorrect interpretation by the dictating instrument. HPI: 69-year-old male [facility] fever. Tested positive for Covid today. History of hypertension, COPD, bipolar disorder, schizophrenia, MDD and alert and oriented x1 at baseline. Patient does not provide any history. Per EMS fevers were unable to be controlled at nursing facility. He was saturating between 90 and 93% on route though he has a history of COPD and does not require oxygen at baseline. No respiratory distress was noted. Otherwise no reports of vomiting, diarrhea or other complaints. 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 EOMI. Cardiovascular: RRR. S1 and S2 normal. No murmur appreciated Resp: Normal work of breathing. Bilateral crackles. Faint wheezing bilaterally. Abdomen: Abdomen is soft, nondistended. Nontender Skin: Intact. No abrasions, laceration or rash over the exposed skin MSK: Normal tone and bulk. Moving all extremities. No obvious deformity. Neuro: Awake, some verbal response, confused Medical Decision Making Diagnostic Impression: Primary Impression: COVID-19 Additional Impression: Fever ER Course Is a 69-year-old male diagnosed with COVID-19 virus today presents for persistent fevers. Blood gas showed 95% saturation. Labs largely unremarkable. Lactic acid and troponin within normal limits. No evidence of urinary tract infection. Slight elevation in CRP consistent with COVID-19 infection as documented by accompanying paperwork. Review of prior hospitalization shows he was admitted to our hospital earlier this month for treatment of pneumonia. Chest x-ray is improved from that visit. D-dimer was slightly elevated and CTA was obtained. No infiltrate or PE identified. Patient's fever has not returned. Will return to nursing facility however on discussion with their staff there isolation lazo will not have a bed until after 8 AM. Patient can stay in the emergency department until then and then will arrange transport. Laboratory Tests Test 10/09/20 22:30 10/09/20 23:15 White Blood Count 2.9 K/UL (4.8-10.8) L Red Blood Count 4.68 M/UL (4.70-6.10) L Hemoglobin 13.9 G/DL (14.2-18.0) L Hematocrit 38.9 % (42.0-52.0) L Mean Corpuscular Volume 83 FL (80-99) Mean Corpuscular Hemoglobin 29.7 PG (27.0-31.0) Mean Corpuscular Hemoglobin Concent 35.6 G/DL (32.0-36.0) Red Cell Distribution Width 14.5 % (11.6-14.8) Platelet Count 127 K/UL (150-450) L Mean Platelet Volume 6.6 FL (6.5-10.1) Neutrophils (%) (Auto) % (45.0-75.0) Lymphocytes (%) (Auto) % (20.0-45.0) Monocytes (%) (Auto) % (1.0-10.0) Eosinophils (%) (Auto) % (0.0-3.0) Basophils (%) (Auto) % (0.0-2.0) Prothrombin Time 10.5 SEC (9.30-11.50) Prothrombin Time INR 0.9 (0.9-1.1) Activated Partial Thromboplast Time 31 SEC (23-33) D-Dimer 0.71 mg/L FEU (0.00-0.49) H Urine Color Yellow Urine Appearance Clear Urine pH 7 (4.5-8.0) Urine Specific Renick 1.010 (1.005-1.035) Urine Protein Negative (NEGATIVE) Urine Glucose (UA) Negative (NEGATIVE) Urine Ketones Negative (NEGATIVE) Urine Blood 1+ (NEGATIVE) H Urine Nitrite Negative (NEGATIVE) Urine Bilirubin Negative (NEGATIVE) Urine Urobilinogen 4 MG/DL (0.0-1.0) H Urine Leukocyte Esterase 1+ (NEGATIVE) H Urine RBC 0-2 /HPF (0 - 0) H Urine WBC 0-2 /HPF (0 - 0) Urine Squamous Epithelial Cells None /LPF (NONE/OCC) Urine Bacteria None /HPF (NONE) Sodium Level 133 MMOL/L (136-145) L Potassium Level 4.0 MMOL/L (3.5-5.1) Chloride Level 101 MMOL/L (98-107) Carbon Dioxide Level 26 MMOL/L (21-32) Anion Gap 6 mmol/L (5-15) Blood Urea Nitrogen 13 mg/dL (7-18) Creatinine 0.9 MG/DL (0.55-1.30) Estimated Glomerular Filtration Rate > 60 mL/min (>60) Glucose Level 94 MG/DL (74-106) Lactic Acid Level 0.70 mmol/L (0.4-2.0) Calcium Level 8.1 MG/DL (8.5-10.1) L Phosphorus Level 2.6 MG/DL (2.5-4.9) Magnesium Level 1.9 MG/DL (1.8-2.4) Ferritin 308 NG/ML (8-388) Total Bilirubin 0.4 MG/DL (0.2-1.0) Aspartate Amino Transferase (AST) 26 U/L (15-37) Alanine Aminotransferase (ALT) 28 U/L (12-78) Alkaline Phosphatase 73 U/L (46-116) Lactate Dehydrogenase 188 U/L (81-234) Total Creatine Kinase 60 U/L (26-308) Creatine Kinase MB < 0.5 NG/ML (0.0-3.6) Creatine Kinase MB Relative Index 0.8 Troponin I 0.039 ng/mL (0.000-0.056) C-Reactive Protein, Quantitative 1.5 mg/dL (0.00-0.90) H Pro-B-Type Natriuretic Peptide 79 pg/mL (0-125) Total Protein 6.5 G/DL (6.4-8.2) Albumin 2.9 G/DL (3.4-5.0) L Globulin 3.6 g/dL Albumin/Globulin Ratio 0.8 (1.0-2.7) L Lipase 232 U/L (73-393) Arterial Blood pH 7.476 (7.350-7.450) Arterial Blood Partial Pressure CO2 28.3 mmHg (35.0-45.0) L Arterial Blood Partial Pressure O2 70.7 mmHg (75.0-100.0) L Arterial Blood HCO3 20.4 mmol/L (22.0-26.0) L Arterial Blood Oxygen Saturation 95.1 % (95-100) Arterial Blood Base Excess -1.9 (-2-2) Fred Test Positive EKG Diagnostic Results Troponin ordered: Yes When was troponin ordered?: Oct 10, 2020 EKG Time: 22:26 Rate: normal Rhythm: NSR ST Segments: no acute changes Other Impression Sinus rhythm, left axis, normal intervals, QTC 416 ms, no ST segment changes. Rhythm Strip Diag. Results Rhythm Strip Time: 22:26 EP Interpretation: yes Rate: 70s Rhythm: NSR, no PVC's, no ectopy Chest X-Ray Diagnostic Results Chest X-Ray Diagnostic Results : Chest X-Ray Ordered: Yes # of Views/Limited/Complete: 1 View Indication: Other - Fever EP Interpretation: Yes Interpretation: no consolidation, no effusion, no pneumothorax, no acute cardiopulmonary disease Impression: No acute disease Electronically Signed by: Electronically signed by Dr. Akash Pineda MD Last Vital Signs Date Time Temp Pulse Resp B/P (MAP) Pulse Ox O2 Delivery O2 Flow Rate FiO2 10/09/20 20:58 100.4 83 18 144/86 (105) 92 Room Air Disposition: SNF Condition: Stable Referrals: NON PHYSICIAN (PCP) Akash Pineda MD Oct 09, 2020 22:22
--- NOTE | 2020-10-09 22:25 | NUR ---
ED Nurse Note: hvac r tech at bedside
[2020-10-09] MEDS ORDERED: dexAMETHasone 10mg/ml Inj IV ONE (22:30)
--- NOTE | 2020-10-09 22:45 | NUR ---
ED Nurse Note: spoke with staff members from [facility], states that at this time they are unable to take the patient back until 0800 tomorrow due to facility not being set up. discussed with ERMD of situation, will cancel admission due to normal labs and patient is afebrile.
--- NOTE | 2020-10-09 22:56 | NUR ---
ED Nurse Note: blood, cultures, lactic, and urine sent to lab
[2020-10-09 23:16] LABS: APPEARANCE,URINE CLEAR; BILIRUBIN, URINE NEGATIVE (NEGATIVE); GLUCOSE, URINE (UA) NEGATIVE (NEGATIVE); KETONES,URINE NEGATIVE (NEGATIVE); LEUKOCYTE ESTERASE ,URINE 1+ (NEGATIVE); NITRITE,URINE NEGATIVE (NEGATIVE); PH,URINE 7 (4.5-8.0); PROTEIN,URINE NEGATIVE (NEGATIVE); UROBILINOGEN,URINE 4 MG/DL (0.0-1.0)
[2020-10-09 23:17] LABS: HEMATOCRIT 38.9 % (42.0-52.0); HEMOGLOBIN 13.9 G/DL (14.2-18.0); MEAN CORPUSCULAR VOLUME 83 FL (80-99); PLATELET COUNT 127 K/UL (150-450); RED BLOOD COUNT 4.68 M/UL (4.70-6.10); RED CELL DISTRIBUTION WIDTH 14.5 % (11.6-14.8); WHITE BLOOD COUNT 2.9 K/UL (4.8-10.8)
[2020-10-09 23:30] VITALS: BP 138/76
[2020-10-09 23:30] LABS: ANION GAP 6 mmol/L (5-15); BLOOD UREA NITROGEN 13 mg/dL (7-18); CALCIUM 8.1 MG/DL (8.5-10.1); CARBON DIOXIDE 26 MMOL/L (21-32); CHLORIDE 101 MMOL/L (98-107); CREATININE 0.9 MG/DL (0.55-1.30); SODIUM 133 MMOL/L (136-145)
[2020-10-09 23:35] LABS: COLOR,URINE YELLOW
--- NOTE | 2020-10-09 23:40 | NUR ---
Note lorenzo in EDM - 10/09/20 at 2347 by MILENA ED Nurse Note: pt sating at 90-91% on RA, placed pt on 3L nc now sating 96-97%. EDMD aware.
--- NOTE | 2020-10-09 23:41 | NUR ---
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
[2020-10-09 23:47] LABS: ALANINE AMINOTRANSFERASE 28 U/L (12-78); ALBUMIN 2.9 G/DL (3.4-5.0); ALBUMIN/GLOBULIN RATIO 0.8 (1.0-2.7); ALKALINE PHOSPHATASE 73 U/L (46-116); ASPARTATE AMINO TRANSFERASE 26 U/L (15-37); BILIRUBIN,TOTAL 0.4 MG/DL (0.2-1.0); CKMB < 0.5 NG/ML (0.0-3.6); CREATINE KINASE 60 U/L (26-308); FERRITIN 308 NG/ML (8-388); LACTATE DEHYDROGENASE 188 U/L (81-234); PHOSPHORUS 2.6 MG/DL (2.5-4.9)
[2020-10-09 23:55] LABS: INR 0.9 (0.9-1.1)
[2020-10-10] VITALS (7 sets, daily range): BP systolic 118–126; BP diastolic 70–76
--- NOTE | 2020-10-10 00:13 | Diagnostic Imaging Report ---
EXAM: XR Chest, 1 View CLINICAL HISTORY: SOB TECHNIQUE: Frontal view of the chest. COMPARISON: 09/23/2020 FINDINGS: Lungs: Low lung volumes with bronchovascular crowding. No consolidation, pleural effusion, or pneumothorax. Pleural space: See above. Heart: Unremarkable. No cardiomegaly. Mediastinum: Unremarkable. Bones/joints: No acute abnormality IMPRESSION: 1. Low lung volumes with bronchovascular crowding. 2. Otherwise no acute cardiopulmonary disease. 3. If there is continued concern, consider frontal and lateral chest radiographs or CT.
[2020-10-10] MEDS ORDERED: Omnipaque 350 100ml vial INJ PRN (00:45)
--- NOTE | 2020-10-10 00:47 | NUR ---
ED Nurse Note: pt laying in bed with eyes closed, arousable to voice. AAOx1, breathing even and unlabored on RA sating 92-93%. No facial grimacing or other signs of discomfort/pain.
--- NOTE | 2020-10-10 00:52 | NUR ---
ED Nurse Note: pt went down to CT via gurney accompanied by CT staff, pt in stable condition.
--- NOTE | 2020-10-10 01:29 | NUR ---
ED Nurse Note: pt back from CT in stable condition.
--- NOTE | 2020-10-10 01:58 | Diagnostic Imaging Report ---
EXAM: CT Angiography Chest With Intravenous Contrast CLINICAL HISTORY: PE TECHNIQUE: Axial computed tomographic angiography images of the chest with intravenous contrast. CTDI is 65.10 mGy and DLP is 267.30 mGy-cm. One or more of the following dose reduction techniques were used: automated exposure control, adjustment of the mA and/or kV according to patient size, use of iterative reconstruction technique. MIP reconstructed images were created and reviewed. Coronal and sagittal reformatted images were created and reviewed. COMPARISON: Same-day and 09/23/2020 chest radiographs. FINDINGS: Pulmonary arteries: No pulmonary embolism. Aorta: No acute findings. No thoracic aortic aneurysm. Lungs: Dependent atelectasis bilaterally, correlate to exclude superimposed consolidation. Pleural space: Unremarkable. No significant effusion. No pneumothorax. Heart: Small low-attenuation pericardial effusion. No evidence of RV dysfunction. Mediastinum: Anterior mediastinal 4.7 x 3 x 7 cm minimally lobular mass not well evaluated on this study could represent benign or neoplastic processes. Bones/joints: Osteopenia and degenerative spine findings. No acute fracture. No dislocation. Soft tissues: Unremarkable. Lymph nodes: Unremarkable. No enlarged lymph nodes. Liver: Benign hepatic 1.4 cm cyst requires no follow-up. IMPRESSION: 1. No pulmonary embolism. 2. Dependent atelectasis bilaterally, correlate to exclude superimposed consolidation. 3. If stability cannot be demonstrated with old CT chest exams, recommend outpatient MRI chest or multiphase CT chest to further evaluate anterior mediastinal mass, neoplastic and benign considerations such as thymoma, lymphoproliferative disorder, or other thymic lesion could have this appearance. 4. Small low-attenuation pericardial effusion.
--- NOTE | 2020-10-10 04:18 | NUR ---
ED Nurse Note: pt laying in bed with eyes closed, breathing even and unlabored. No facial grimacing or signs of pain noted. Pt is afebrile 98.7 temp.
--- NOTE | 2020-10-10 06:47 | NUR ---
ED Nurse Note: pt in bed with eyes closed, arousable when name is called. No facial grimacing or signs of discomfort. Pt is afebrile, vital signs stable.
--- NOTE | 2020-10-10 07:01 | NUR ---
HAND-OFF: Report given to IWONA Malclom.
--- NOTE | 2020-10-10 07:04 | NUR ---
ED Nurse Note: received report from ferny kaur.
--- NOTE | 2020-10-10 10:20 | NUR ---
ED Nurse Note: gave report to amari fritz
--- NOTE | 2020-10-10 12:13 | NUR ---
ED Nurse Note: Pt cleared by health care Provider for discharge back to SNF. DC instructions was given and explained to pt and verbalized understanding of teachings. All medical deviecs such as ID band and iv removed. Pt is A/O x1 and left with all personal belongings. ra 6[facility]. vss, nad noted.
== END 2020-10-10 12:19 ==
LOC: EDBD 20:38 → EMR 22:11 → UNDOADMIN 22:30 → 4E 22:30 → EDBEDREQ 23:27 → EMR 10-10 12:19
DX: U07.1 COVID-19 (principal); R50.9 Fever, unspecified; I10 Essential (primary) hypertension; J44.9 Chronic obstructive pulmonary disease, unspecified; I25.2 Old myocardial infarction
CPT/HCPCS: 36415; 71045; 71275; 80053; 81003; 82550; 82553; 82728; 82803; 83605; 83615; 83690; 83735; 83880; 84100; 84484; 85025; 85379; 85610; 85730; 86140; 87040; 87081; 93005; 96374; Q9967; Z7502; 99284